=== PATIENT | female | born 1960 | race African-American/Black ===

== ENCOUNTER 2020-02-24 05:05 | Inpatient (IN) | payer SELFPAY ==
[2020-02-24] VITALS (15 sets, daily range): BP systolic 95–136; BP diastolic 65–88
[~2020-02-24] VITALS: Ht 167.6 cm; Wt 78.7 kg
[2020-02-24] MEDS ORDERED: Morphine Sulfate 4mg/ml Inj (IV USE ONLY) IVP ONE ×2 (05:30→06:30)
[2020-02-24] MEDS ORDERED: Omnipaque-300 100ml vial INJ PRN (05:30)
--- NOTE | 2020-02-24 05:30 | NUR ---
ED Nurse Note: Recieved pt from home, here with c/o severe 10/10 abdominal pain in right upper and lower side, pain started in am and worsened through the day, pt was awakened with severe pain, pt is awake, alert and oriented x 4, ambulating, no chest pain or sob, pt immediately gowned and placed on cardiac monitoring, IV line placed and labs drawn, MD immediately at bedside, will resume care as ordered and closely monitor.
--- NOTE | 2020-02-24 05:37 | Emergency Room Report ---
History of Present Illness General Chief Complaint: Abdominal Pain Source: Patient (Arnoldo Villegas MD) Present Illness HPI 60-year-old female presents to ED complaining of abdominal pain. Started at 3 PM yesterday. Lower abdomen radiating to the back. 10 out of 10, sharp. Notes nausea and vomiting. Denies fevers or chills. Denies chest pain. Denies diarrhea. Denies sick contacts or recent travel. No other aggravating relieving factors. 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 (Arnoldo Villegas MD) Patient History Past Medical History: none Past Surgical History: none Pertinent Family History: none Social History: Denies: smoking, alcohol use, drug use Last Menstrual Period: na Now: No Immunizations: UTD Reviewed Nursing Documentation: PMH: Agreed; PSxH: Agreed (Arnoldo Villegas MD) Nursing Documentation-PMH Past Medical History: No Stated History (Arnoldo Villegas MD) Review of Systems All Other Systems: negative except mentioned in HPI (Arnoldo Villegas MD) Physical Exam Vital Signs Date Time Temp Pulse Resp B/P (MAP) Pulse Ox O2 Delivery O2 Flow Rate FiO2 02/24/20 05:09 98.2 104 24 143/96 (112) 95 Room Air Sp02 EP Interpretation: reviewed, normal General Appearance: alert, GCS 15, non-toxic, mild distress Head: normocephalic, atraumatic Eyes: bilateral eye normal inspection, bilateral eye PERRL ENT: hearing grossly normal, normal pharynx, no angioedema, normal voice Neck: full range of motion, supple/symm/no masses Respiratory: chest non-tender, lungs clear, normal breath sounds, speaking full sentences Cardiovascular #1: regular rate, rhythm, no edema Cardiovascular #2: 2+ carotid (R), 2+ carotid (L), 2+ radial (R), 2+ radial (L) , 2+ dorsalis pedis (R), 2+ dorsalis pedis (L) Gastrointestinal: normal bowel sounds, soft, non-distended, no rebound, guarding, tenderness - RLQ Rectal: deferred Genitourinary: normal inspection, no CVA tenderness Musculoskeletal: back normal, normal range of motion, gait/station normal, non- tender Neurologic: alert, motor strength/tone normal, oriented x3, sensory intact, responsive, speech normal Psychiatric: judgement/insight normal, memory normal, mood/affect normal, no suicidal/homicidal ideation Reflexes: 3+ bicep (R), 3+ bicep (L), 3+ tricep (R), 3+ tricep (L), 3+ knee (R) , 3+ knee (L) Skin: no rash Lymphatic: no adenopathy (Arnoldo Villegas MD) Medical Decision Making Diagnostic Impression: Primary Impression: Appendicitis Qualified Codes: K35.30 - Acute appendicitis with localized peritonitis, without perforation or gangrene ER Course 60-year-old female presents with right lower quadrant pain concerning for appendicitis, CT scan shows appendicitis. Patient given ceftriaxone, metronidazole. Patient pain was controlled with hydromorphone. Patient admitted to Dr. Kim, patient will be going to the operating room under Dr. Boone (Leon Hutchison MD) Last Vital Signs Date Time Temp Pulse Resp B/P (MAP) Pulse Ox O2 Delivery O2 Flow Rate FiO2 02/24/20 05:09 98.2 104 24 143/96 (112) 95 Room Air (Arnoldo Villegas MD) Disposition: ADMITTED INPATIENT Condition: Stable Referrals: NOT CHOSEN IPA/,REFERRING (PCP) Arnoldo Villegas MD February 24, 2020 05:37 Leon Hutchison MD February 24, 2020 08:00
[2020-02-24 05:58] LABS: HEMATOCRIT 51.3 % (37.0-47.0); HEMOGLOBIN 17.7 G/DL (12.0-16.0); MEAN CORPUSCULAR VOLUME 80 FL (80-99); PLATELET COUNT 391 K/UL (150-450); RED BLOOD COUNT 6.41 M/UL (4.20-5.40); RED CELL DISTRIBUTION WIDTH 11.6 % (11.6-14.8); WHITE BLOOD COUNT 19.1 K/UL (4.8-10.8)
[2020-02-24 06:05] LABS: ANION GAP 18 mmol/L (5-15); BLOOD UREA NITROGEN 9 mg/dL (7-18); CALCIUM 9.4 MG/DL (8.5-10.1); CARBON DIOXIDE 21 MMOL/L (21-32); CHLORIDE 103 MMOL/L (98-107); CREATININE 1.1 MG/DL (0.55-1.30); POTASSIUM 3.8 MMOL/L (3.5-5.1); SODIUM 141 MMOL/L (136-145)
[2020-02-24 06:10] LABS: ALANINE AMINOTRANSFERASE 47 U/L (12-78); ALBUMIN 3.9 G/DL (3.4-5.0); ALBUMIN/GLOBULIN RATIO 0.9 (1.0-2.7); ALKALINE PHOSPHATASE 65 U/L (46-116); ASPARTATE AMINO TRANSFERASE 21 U/L (15-37)
[2020-02-24] MEDS ORDERED: Morphine Sulfate 4mg/ml Inj (IV USE ONLY) ONE (06:13)
--- NOTE | 2020-02-24 06:15 | NUR ---
ED Nurse Note: Pt continues to rest in bed, awake and alert, pain meds given slightly effective with pain at 7/10, pt asking for morepain meds, pt re-medicated, will monitor for effectiveness, also had pt sign CT consent for for IV contrast, pt denies any allergies or past complications with iodine.
--- NOTE | 2020-02-24 06:56 | NUR ---
ED Nurse Note: pt. went down to CT
--- NOTE | 2020-02-24 07:05 | NUR ---
ED Nurse Note: Received report from Radha MORTENSEN.
[2020-02-24] MEDS ORDERED: HYDROmorphone 1mg/ml Carpuject IVP ONE ×2 (07:15→09:45)
[2020-02-24] MEDS ORDERED: cefTRIAXone 1 GM in NS 55 ML IVPB ONE (07:15)
--- NOTE | 2020-02-24 07:15 | NUR ---
ED Nurse Note: Pt returned from CT, not in any distress.
--- NOTE | 2020-02-24 07:36 | Diagnostic Imaging Report ---
EXAM: CT Abdomen and Pelvis With Intravenous Contrast CLINICAL HISTORY: ABD PAIN TECHNIQUE: Axial computed tomography images of the abdomen and pelvis with intravenous contrast. CTDI is 5.9 mGy and DLP is 312 mGy-cm. One or more of the following dose reduction techniques were used: automated exposure control, adjustment of the mA and/or kV according to patient size, use of iterative reconstruction technique. COMPARISON: No relevant prior studies available. FINDINGS: Lung bases: There is mild bibasilar atelectasis. Mediastinum: There is a small by hiatal hernia. ABDOMEN: Liver: Unremarkable. No mass. Gallbladder and bile ducts: Unremarkable. No calcified stones. No ductal dilation. Pancreas: Unremarkable. No mass. No ductal dilation. Spleen: Unremarkable. No splenomegaly. Adrenals: Unremarkable. No mass. Kidneys and ureters: There are bilateral pelvic renal cysts. There is no hydronephrosis. Stomach and bowel: No bowel obstruction. There is also mild circumferential wall thickening of most of the colon which could be due to underdistention but could represent a mild colitis. PELVIS: Appendix: The appendix is markedly thickened, measuring up to 1.6 cm. There are small hyperdense areas in the lumen, likely small appendicoliths. There are mild to moderate plantar changes in the surrounding fat. Bladder: Unremarkable. No mass. Reproductive: Unremarkable as visualized. ABDOMEN and PELVIS: Intraperitoneal space: Unremarkable. No free air. No significant fluid collection. Bones/joints: No acute fracture. No dislocation. Soft tissues: Unremarkable. Vasculature: Unremarkable. No abdominal aortic aneurysm. Lymph nodes: Unremarkable. No enlarged lymph nodes. IMPRESSION: 1. Acute appendicitis. No evidence of abscess or perforation. 2. Mild circumferential wall thickening of the colon could be due to underdistention but cannot exclude a colitis. <MYCVCSECTION> Communications: 02/24/20 07:44 Call Doctor Regarding Appendicitis, called Dr. Hutchison on 02/23 07:43 (-07:00)
[2020-02-24 07:50] LABS: APPEARANCE,URINE CLEAR; BILIRUBIN, URINE NEGATIVE (NEGATIVE); COLOR,URINE PALE YELLOW; GLUCOSE, URINE (UA) 1+ (NEGATIVE); KETONES,URINE 2+ (NEGATIVE); LEUKOCYTE ESTERASE ,URINE NEGATIVE (NEGATIVE); NITRITE,URINE NEGATIVE (NEGATIVE); PH,URINE 5 (4.5-8.0); PROTEIN,URINE 2+ (NEGATIVE); UROBILINOGEN,URINE NORMAL MG/DL (0.0-1.0)
[2020-02-24] MEDS ORDERED: AMLODIPINE BESY10 MG ORAL (08:46)
--- NOTE | 2020-02-24 08:58 | NUR ---
ED Nurse Note: Dr. Boone at bedside.
--- NOTE | 2020-02-24 09:08 | Pre-Procedure Note/Attestation ---
Pre-Procedure Note/Attestation Complete Prior to Procedure Planned Procedure: not applicable Procedure Narrative: laparoscopic appendectomy possible open appendectomy Indications for Procedure Pre-Operative Diagnosis: acute appendicitis Attestation I attest that I discussed the nature of the procedure; its benefits; risks and complications; and alternatives (and the risks and benefits of such alternatives ), prior to the procedure, with the patient (or the patient's legal marketing representative). I attest that, if there was a reasonable possibility of needing a blood transfusion, the patient (or the patient's legal marketing representative) was given the [facility] standardized written summary, pursuant to the Steven Tejal Blood Safety Act ([place] Health and Safety Code # 1645, as amended). I attest that I re-evaluated the patient just prior to the surgery and that there has been no change in the patient's H&P, except as documented below: Marisol Boone MD February 24, 2020 09:08
--- NOTE | 2020-02-24 09:08 | NUR ---
ED Nurse Note: Dr. Kim at bedside.
[2020-02-24] MEDS ORDERED: Bupivacaine 0.25% Inj 30ml INJ ONE (10:21)
[2020-02-24] MEDS ORDERED: Succinylcholine 20mg/ml 10ml vial ONE (10:21)
[2020-02-24] MEDS ORDERED: Rocuronium Bromide 50mg/5ml Inj IV ONE (10:21)
[2020-02-24] MEDS ORDERED: Bacitracin 50000 Units Vial ONE (10:22)
--- NOTE | 2020-02-24 10:22 | NUR ---
ED Nurse Note: Pt was picked up by OR tech for surgery via gurney. Pt AAOx4, verbally responsive. Pre op assesment done. Consent obtained. Pt took all the belongings.
[2020-02-24] MEDS ORDERED: Sterile Water Irrig 1000ml IRRIG ONE (10:30)
[2020-02-24] MEDS ORDERED: LR 1000ml ONE (10:30)
[2020-02-24] MEDS ORDERED: NS Irrig 1000ml ONE (10:30)
[2020-02-24] MEDS ORDERED: propofoL 1,000mg/100ml IV ONE (10:30)
[2020-02-24] MEDS ORDERED: Neostigmine 1mg/ml 10ml Inj ONE (10:30)
[2020-02-24] MEDS ORDERED: LR 1000ml 1,000 ML IVLG SCH (10:31)
--- NOTE | 2020-02-24 10:33 | Anethesia Preoperative Eval ---
Anesthesia Pre-op PMH/ROS General Date of Evaluation: February 24, 2020 Time of Evaluation: 01:36 Anesthesiologist: Radhika ASA Score: ASA 2 - Emergency Mallampati Score Class I : Soft palate, uvula, fauces, pillars visible Class II: Soft palate, uvula, fauces visible Class III: Soft palate, base of uvula visible Class IV: Only hard plate visible Mallampati Classification: Class II Surgeon: Paolo Diagnosis: Acute Appendicitis Surgical Procedure: Laparoscopic Appendectomy Anesthesia History: none Social History: current smoker Family History: no anesthesia problems Allergies: Coded Allergies: No Known Allergies (Unverified , 02/24/20) Medications: see eMAR Patient NPO?: Yes Past Medical History Hematology/Immune: Reports: other - Covid Status Unknown Anesthesia Pre-op Phys. Exam Physician Exam Last Vital Signs Date Time Temp Pulse Resp B/P (MAP) Pulse Ox O2 Delivery O2 Flow Rate FiO2 02/24/20 10:22 98.3 90 21 125/69 98 Room Air Constitutional: NAD Neurologic: CN 2-12 intact Cardiovascular: RRR Respiratory: CTA Gastrointestinal: S/NT/ND Airway Exam Mallampati Score: Class II MO: full ROM: limited Teeth: intact Anesthesia Pre-op A/P Labs Hematology Test 02/24/20 05:25 White Blood Count 19.1 K/UL (4.8-10.8) H Red Blood Count 6.41 M/UL (4.20-5.40) H Hemoglobin 17.7 G/DL (12.0-16.0) H Hematocrit 51.3 % (37.0-47.0) H Mean Corpuscular Volume 80 FL (80-99) Mean Corpuscular Hemoglobin 27.6 PG (27.0-31.0) Mean Corpuscular Hemoglobin Concent 34.5 G/DL (32.0-36.0) Red Cell Distribution Width 11.6 % (11.6-14.8) Platelet Count 391 K/UL (150-450) Mean Platelet Volume 5.6 FL (6.5-10.1) L Neutrophils (%) (Auto) % (45.0-75.0) Lymphocytes (%) (Auto) % (20.0-45.0) Monocytes (%) (Auto) % (1.0-10.0) Eosinophils (%) (Auto) % (0.0-3.0) Basophils (%) (Auto) % (0.0-2.0) Differential Total Cells Counted 100 Neutrophils % (Manual) 89 % (45-75) H Lymphocytes % (Manual) 6 % (20-45) L Monocytes % (Manual) 5 % (1-10) Eosinophils % (Manual) 0 % (0-3) Basophils % (Manual) 0 % (0-2) Band Neutrophils 0 % (0-8) Platelet Estimate Adequate Platelet Morphology Normal Red Blood Cell Morphology Normal Coagulation Test 02/24/20 05:25 Prothrombin Time 10.9 SEC (9.30-11.50) Prothromb Time International Ratio 1.0 (0.9-1.1) Activated Partial Thromboplast Time 27 SEC (23-33) Chemistry Test 02/24/20 05:25 Sodium Level 141 MMOL/L (136-145) Potassium Level 3.8 MMOL/L (3.5-5.1) Chloride Level 103 MMOL/L (98-107) Carbon Dioxide Level 21 MMOL/L (21-32) Anion Gap 18 mmol/L (5-15) H Blood Urea Nitrogen 9 mg/dL (7-18) Creatinine 1.1 MG/DL (0.55-1.30) Estimat Glomerular Filtration Rate > 60 mL/min (>60) Glucose Level 166 MG/DL (74-106) H Calcium Level 9.4 MG/DL (8.5-10.1) Total Bilirubin 1.0 MG/DL (0.2-1.0) Aspartate Amino Transf (AST/SGOT) 21 U/L (15-37) Alanine Aminotransferase (ALT/SGPT) 47 U/L (12-78) Alkaline Phosphatase 65 U/L (46-116) Total Protein 8.3 G/DL (6.4-8.2) H Albumin 3.9 G/DL (3.4-5.0) Globulin 4.4 g/dL Albumin/Globulin Ratio 0.9 (1.0-2.7) L Lipase 85 U/L (73-393) Risk Assessment & Plan Assessment: ASA 2E Plan: GA, SED, GlideScope Status Change Before Surgery: No Pre-Antibiotics Dru Gram Ancef IV Given Within 1 Hr of Incision: Yes Time Given: 11:41 Devan Garrido MD February 24, 2020 10:33
[2020-02-24] MEDS ORDERED: Lidocaine 1% MPF 10mg/ml 5ml ONE (10:37)
[2020-02-24] MEDS ORDERED: Dexamethasone 4mg/ml vial ONE (10:37)
[2020-02-24] MEDS ORDERED: Sodium Chloride 10ml vial INJ ONE (10:37)
[2020-02-24] MEDS ORDERED: Midazolam 2mg/2ml Inj ONE (10:38)
[2020-02-24] MEDS ORDERED: fentaNYL 100 mcg/2 mL IV ONE ×2 (10:38→12:36)
[2020-02-24] MEDS ORDERED: Hydromorphone 0.5mg/0.5ml inj IVP PRN (10:45)
[2020-02-24] MEDS ORDERED: LORazepam Inj 2mg/ml 1ml IV PRN (10:45)
[2020-02-24] MEDS ORDERED: Ketorolac 30mg Inj IV PRN (10:45)
[2020-02-24] MEDS ORDERED: DiphenhydrAMINE 50mg/ml Inj IVP PRN (10:45)
[2020-02-24] MEDS ORDERED: Midazolam 2mg/2ml Inj IVP PRN (10:45)
[2020-02-24] MEDS ORDERED: HYDROcodone/Acetamin 7.5/325 tab ORAL PRN (10:45)
[2020-02-24] MEDS ORDERED: Labetalol 5mg/ml 20ml vial IV PRN (10:45)
[2020-02-24] MEDS ORDERED: Acetaminophen (Non formulary) 100 ML IV ONE (10:45)
[2020-02-24] MEDS ORDERED: Metoclopramide 10mg/2ml Inj IVP PRN (10:45)
[2020-02-24] MEDS ORDERED: HYDROcodone/Acetamin 5/325 tab ORAL PRN (10:45)
[2020-02-24] MEDS ORDERED: Meperidine 25mg/0.5ml Inj (FOR RIGORS ONLY) IV PRN (10:45)
[2020-02-24] MEDS ORDERED: oxyCODONE HCL/Acetaminophen 5/325mg ORAL PRN (10:45)
[2020-02-24] MEDS ORDERED: fentaNYL 100 mcg/2 mL IV PRN (10:45)
[2020-02-24] MEDS ORDERED: Atropine Sulfate 0.4mg/ml inj IVP PRN (10:45)
--- NOTE | 2020-02-24 11:27 | Immediate Post-Op Evaluation ---
Immediate Post-Op Evalulation Immediate Post-Op Evalulation Procedure: Laparoscopic Appendectomy Date of Evaluation: February 24, 2020 Time of Evaluation: 14:15 IV Fluids: 1000 LR Blood Products: 0 Estimated Blood Loss: 50 Urinary Output: 0 Blood Pressure Systolic: 125 Blood Pressure Diastolic: 78 Pulse Rate: 94 Respiratory Rate: 16 O2 Sat by Pulse Oximetry: 94 Temperature (Fahrenheit): 98.4 Pain Score (1-10): 2 Nausea: No Vomiting: No Complications 0 Patient Status: awake, reacts, patent, extubated, none Hydration Status: adequate Dru Gram Ancef IV Given Within 1 Hr of Incision: Yes Time Given: 11:41 Devan Garrido MD February 24, 2020 11:27
--- NOTE | 2020-02-24 12:15 | Consultation ---
DATE OF CONSULTATION: 02/24/2020 PREOPERATIVE CONSULTATION CONSULTING PHYSICIAN: Marisol Boone MD. REQUESTING PHYSICIAN: Emergency room physician. REASON FOR CONSULTATION: Abdominal pain. HISTORY OF PRESENT ILLNESS: This is a 60-year-old female, who presented to emergency room complaining of abdominal pain since early this morning or last night. The pain is located in the lower abdomen mainly on the right lower quadrant. It has been associated with nausea and vomiting. She denies any fever, cough, dysuria, or frequency. She claims that she has had this pain before, but not so severe. PAST MEDICAL HISTORY: She denies allergies, asthma, diabetes, cardiac and renal diseases. She has a history of hypertension. PAST SURGICAL HISTORY: None. MEDICATIONS: Currently, she takes medicine for hypertension and hormones. SOCIAL HISTORY: The patient is a 60-year-old female, single without any children. 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 REVIEW OF SYSTEMS: Noncontributory. PHYSICAL EXAMINATION: GENERAL: The patient appeared to be a well-developed, well-nourished, 60-year-old female, who is lying on the bed, complaining of abdominal pain. HEENT: Head is normocephalic and atraumatic. Eyes, pupils are equal, round, and reactive to light. Mouth is clear. NECK: There is no palpable thyromegaly or adenopathy. CHEST: Clear to auscultation and percussion. HEART: There is no gallop or murmur. S1 and S2 are within normal limits. ABDOMEN: Soft and flat with tenderness. Voluntary guarding and mild rebound tenderness in the lower abdomen, which is more pronounced at the right lower quadrant. Bowel sounds are present. GENITAL: She is free of hernia. EXTREMITIES: Within normal limits. LABORATORY DATA: CBC has shown a WBC of 19,100 with a left shift. Chemistry and UA are normal. CAT scan of the abdomen has been interpreted as acute appendicitis. ASSESSMENT: Acute appendicitis. PLAN: After rehydration, the patient will undergo a laparoscopy appendectomy, possible open appendectomy. Risks and benefits have been explained to her. She understood and granted consent. Marisol Boone M.D. DR: DIAN JOB#: [id number] CC: SHEY
[2020-02-24] MEDS ORDERED: Glycopyrrolate 0.2mg/ml 1ml Vial ONE (12:18)
[2020-02-24] MEDS ORDERED: NS Irrig 1000ml IRRIG ONE (12:30)
[2020-02-24] MEDS ORDERED: Lidocaine 1% Plain 30 ml INJ ONE (12:37)
--- NOTE | 2020-02-24 13:20 | Brief Operative Note ---
Immediate Post Operative Note Operative Note Pre-op Diagnosis: acute appendicitis Procedure: Laparoscopic appendectomy drainage of abscess, open exploration and repair of cecum Post-op Diagnosis: appendicitis with abscess Post-op Diagnosis: same as pre-op Surgeon: Md Alia Family Literacy Coordinator: none Anesthesiologist: Dr. Garrido Anesthesia: general Specimen: yes Complications: none Condition: stable Fluids: per anesthesia Estimated Blood Loss: volume - 20 ml Drains: other - kishor Implant(s) used?: No Marisol Boone MD February 24, 2020 13:20
[2020-02-24] MEDS ORDERED: Acetaminophen 650 MG SUPP RECTAL PRN (13:30)
--- NOTE | 2020-02-24 14:06 | History & Physical ---
History and Physical History & Physicial HISTORY OF PRESENT ILLNESS: 60-year-old female, who presented to emergency room complaining of abdominal pain right lower quadrant. + nausea and vomiting. She denies any fever, cough, dysuria, or frequency. CT confirmed appendicitis PAST MEDICAL HISTORY: hypertension. PAST SURGICAL HISTORY: None. 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 REVIEW OF SYSTEMS: Noncontributory. PHYSICAL EXAMINATION: WDWN NAD clear breath sounds bilaterally without rhonchi or wheeze [id number] without MRG NABS tender abdomen RLQ no CCE nonfocal LABORATORY DATA: Laboratory Tests Test 02/24/20 05:25 02/24/20 07:30 White Blood Count 19.1 K/UL (4.8-10.8) H Red Blood Count 6.41 M/UL (4.20-5.40) H Hemoglobin 17.7 G/DL (12.0-16.0) H Hematocrit 51.3 % (37.0-47.0) H Mean Corpuscular Volume 80 FL (80-99) Mean Corpuscular Hemoglobin 27.6 PG (27.0-31.0) Mean Corpuscular Hemoglobin Concent 34.5 G/DL (32.0-36.0) Red Cell Distribution Width 11.6 % (11.6-14.8) Platelet Count 391 K/UL (150-450) Mean Platelet Volume 5.6 FL (6.5-10.1) L Neutrophils (%) (Auto) % (45.0-75.0) Lymphocytes (%) (Auto) % (20.0-45.0) Monocytes (%) (Auto) % (1.0-10.0) Eosinophils (%) (Auto) % (0.0-3.0) Basophils (%) (Auto) % (0.0-2.0) Differential Total Cells Counted 100 Neutrophils % (Manual) 89 % (45-75) H Lymphocytes % (Manual) 6 % (20-45) L Monocytes % (Manual) 5 % (1-10) Eosinophils % (Manual) 0 % (0-3) Basophils % (Manual) 0 % (0-2) Band Neutrophils 0 % (0-8) Platelet Estimate Adequate Platelet Morphology Normal Red Blood Cell Morphology Normal Prothrombin Time 10.9 SEC (9.30-11.50) Prothromb Time International Ratio 1.0 (0.9-1.1) Activated Partial Thromboplast Time 27 SEC (23-33) Sodium Level 141 MMOL/L (136-145) Potassium Level 3.8 MMOL/L (3.5-5.1) Chloride Level 103 MMOL/L (98-107) Carbon Dioxide Level 21 MMOL/L (21-32) Anion Gap 18 mmol/L (5-15) H Blood Urea Nitrogen 9 mg/dL (7-18) Creatinine 1.1 MG/DL (0.55-1.30) Estimat Glomerular Filtration Rate > 60 mL/min (>60) Glucose Level 166 MG/DL (74-106) H Calcium Level 9.4 MG/DL (8.5-10.1) Total Bilirubin 1.0 MG/DL (0.2-1.0) Aspartate Amino Transf (AST/SGOT) 21 U/L (15-37) Alanine Aminotransferase (ALT/SGPT) 47 U/L (12-78) Alkaline Phosphatase 65 U/L (46-116) Total Protein 8.3 G/DL (6.4-8.2) H Albumin 3.9 G/DL (3.4-5.0) Globulin 4.4 g/dL Albumin/Globulin Ratio 0.9 (1.0-2.7) L Lipase 85 U/L (73-393) Urine Color Pale yellow Urine Appearance Clear Urine pH 5 (4.5-8.0) Urine Specific [place] 1.015 (1.005-1.035) Urine Protein 2+ (NEGATIVE) H Urine Glucose (UA) 1+ (NEGATIVE) H Urine Ketones 2+ (NEGATIVE) H Urine Blood Negative (NEGATIVE) Urine Nitrite Negative (NEGATIVE) Urine Bilirubin Negative (NEGATIVE) Urine Urobilinogen Normal MG/DL (0.0-1.0) Urine Leukocyte Esterase Negative (NEGATIVE) Urine RBC 0 /HPF (0 - 2) Urine WBC 0-2 /HPF (0 - 2) Urine Squamous Epithelial Cells Few /LPF (NONE/OCC) Urine Bacteria Occasional /HPF (NONE) Urine Mucus Few /LPF (NONE/OCC) H ASSESSMENT: Acute appendicitis. leukocytosis, due to the above proteinuria hypertension PLAN appy planned NPO IV fluids antihypoertensive surgery appreciated impression, plan, and exam edited and reviewed in detail care discussed with Toni Márquez MD February 24, 2020 14:06
--- NOTE | 2020-02-24 14:07 | General Progress Note ---
Subjective Allergies: Coded Allergies: No Known Allergies (Unverified , 02/24/20) Objective Last 24 Hour Vital Signs Date Time Temp Pulse Resp B/P (MAP) Pulse Ox O2 Delivery O2 Flow Rate FiO2 02/24/20 10:22 98.3 90 21 125/69 98 Room Air 02/24/20 10:22 98.3 90 21 125/69 98 Room Air 02/24/20 10:18 98.3 02/24/20 09:00 98.3 92 25 121/66 96 Room Air 02/24/20 07:54 98.3 02/24/20 07:05 98.3 89 21 128/88 97 Room Air 02/24/20 06:35 98.3 74 18 136/88 98 Room Air 02/24/20 06:24 98.3 02/24/20 06:24 98.3 02/24/20 05:25 104 24 Room Air 02/24/20 05:09 98.2 104 24 143/96 (112) 95 Room Air Laboratory Tests 02/24/20 05:25: White Blood Count 19.1H, Red Blood Count 6.41H, Hemoglobin 17.7H, Hematocrit 51.3H, Mean Corpuscular Volume 80, Mean Corpuscular Hemoglobin 27.6, Mean Corpuscular Hemoglobin Concent 34.5, Red Cell Distribution Width 11.6, Platelet Count 391, Mean Platelet Volume 5.6L, Neutrophils (%) (Auto) , Lymphocytes (%) ( Auto) , Monocytes (%) (Auto) , Eosinophils (%) (Auto) , Basophils (%) (Auto) , Differential Total Cells Counted 100, Neutrophils % (Manual) 89H, Lymphocytes % (Manual) 6L, Monocytes % (Manual) 5, Eosinophils % (Manual) 0, Basophils % ( Manual) 0, Band Neutrophils 0, Platelet Estimate Adequate, Platelet Morphology Normal, Red Blood Cell Morphology Normal, Prothrombin Time 10.9, Prothromb Time International Ratio 1.0, Activated Partial Thromboplast Time 27, Sodium Level 141, Potassium Level 3.8, Chloride Level 103, Carbon Dioxide Level 21, Anion Gap 18H, Blood Urea Nitrogen 9, Creatinine 1.1, Estimat Glomerular Filtration Rate > 60, Glucose Level 166H, Calcium Level 9.4, Total Bilirubin 1.0, Aspartate Amino Transf (AST/SGOT) 21, Alanine Aminotransferase (ALT/SGPT) 47, Alkaline Phosphatase 65, Total Protein 8.3H, Albumin 3.9, Globulin 4.4, Albumin/ Globulin Ratio 0.9L, Lipase 85 02/24/20 07:30: Urine Color Pale yellow, Urine Appearance Clear, Urine pH 5, Urine Specific [place] 1.015, Urine Protein 2+H, Urine Glucose (UA) 1+H, Urine Ketones 2+H, Urine Blood Negative, Urine Nitrite Negative, Urine Bilirubin Negative, Urine Urobilinogen Normal, Urine Leukocyte Esterase Negative, Urine RBC 0, Urine WBC 0 -2, Urine Squamous Epithelial Cells Few, Urine Bacteria Occasional, Urine Mucus FewH Height (Feet): 5 Height (Inches): 6.00 Weight (Pounds): 77 Toni Kim MD February 24, 2020 14:07
[2020-02-24] MEDS: Ketorolac 30mg Inj IV PRN ×2 (14:33→15:41)
[2020-02-24] MEDS: D5 1/2NS w/KCl 20mEq 1,000 ML IV SCH (16:31)
--- NOTE | 2020-02-24 18:29 | Operative Note - Dictated ---
DATE OF OPERATION: 02/24/2020 PREOPERATIVE DIAGNOSIS: Acute appendicitis. POSTOPERATIVE DIAGNOSIS: Acute appendicitis with abscess. OPERATION: 1. Laparoscopic appendectomy with drainage of abscess. 2. Open exploration of the right lower quadrant with repair of the cecum. COMPLICATIONS: None. SURGEON: Marisol Boone MD. RADIO MECHANIC: None. ANESTHESIA: General with endotracheal tube. ANESTHESIOLOGIST: Devan Garrido MD. INDICATION: This is a 60-year-old female, who presented to emergency room with abdominal pain since last night. The pain was located at the right lower quadrant and associated with nausea and vomiting. Apparently she had a normal bowel movement yesterday. Physical examination showed severe tenderness and rebound tenderness at the lower abdomen, which was more severe on the right lower quadrant. CBC showed a WBC of 19,000 with a left shift. CAT scan of the abdomen was interpreted as acute appendicitis. DESCRIPTION OF PROCEDURE: The patient was placed supine on the operating table and after general anesthesia with endotracheal tube, the abdomen was properly prepped and draped. Initially, a small incision was given above the umbilicus through which a Veress needle was introduced into the intraperitoneal cavity. This cavity was insufflated up to 15 mmHg and then the Veress needle was removed and a 5 mm trocar was placed in the intraperitoneal cavity through the incision above the umbilicus. The laparoscope and camera were introduced into the intraperitoneal cavity through the trocar above the umbilicus. Under direct vision, a 5 mm trocar was placed at the suprapubic area and a 12 mm trocar was placed at the left lower quadrant of the abdomen. Initially, a rapid exploration was performed, which showed the diaphragms to be normal. The part of the stomach, which could be seen was normal. The liver and gallbladder was normal. The bowels were covered with omentum. At the right lower quadrant, there was extensive inflammatory signs and there was some chávez-brownish fluid on the right paracolic gutter. The fluid was aspirated. The pus was aspirated and then exploration of the right lower quadrant cavity was performed. There were extensive adhesions, which were released. Finally the appendix was identified. During the dissection, an abscess was drained, which was suctioned out. This abscess seems to be lateral to the appendix under the cecum and from the appendix. The appendix and mesoappendix was completely exposed. The appendix was distended and inflamed, but I did not see any perforation. The appendix and the mesoappendix was ligated and transected with the help of the ASMY stapler. At the next step, the exploration of the area was performed and there was an area on the cecum, which was most probably the abscess cavity and was draining. After the pus was completely removed, I was not sure if there was any perforation in the cecum. Exploration clearly showed that there was no perforation. I tried to resect this part of the cecum with the help of the SAMY stapler, but it was very thick and our SAMY stapler could not accommodate. Several attempts were performed to make sure about the nature of this area, but I could not make sure that there was no perforation in the cecum, so the decision was made to explore the right lower quadrant cavity and explore it under direct vision. The trocars were removed. An oblique incision was given at the right lower quadrant and was carried sharply through subcutaneous tissue and the fascia. The muscle was split. The peritoneum was incised. Intraperitoneal cavity was entered. The cecum was identified and was released and was delivered in the wound. Exploration was performed. Again, the area was very suspicious. I was unable to see any huan perforation, but the wall was inflamed and it was very clean. After multiple attempts to explore the area, finally I applied the SAMY stapler on the area and the suspicious area was ligated and resected. The area was oversewn with a running suture of [address], I was sure that if there was any perforation, it has been taken care of. After this, the intraperitoneal cavity was thoroughly irrigated with antibiotic solution. Kuldeep drain was placed in the pelvis and was extended in the right paracolic gutter and was brought out from a separate stab wound. The incision was approximated with running suture of 0 Vicryl for posterior fascia and peritoneum. The muscles were approximated with multiple interrupted sutures with 0 Vicryl and then the aponeurosis of the external oblique was repaired with a running suture of 0 Vicryl. The skin incisions were approximated with multiple skin kailey. The patient tolerated the procedure very well and was transferred to recovery room in stable condition and extubated. COUNTS: The sponge and needle count correct. ESTIMATED BLOOD LOSS: 20 mL. CONDITION OF THE PATIENT AT THE END OF THE PROCEDURE: Stable. Marisol Boone M.D. DR: GILES JOB#: [id number] CC:
--- NOTE | 2020-02-24 19:11 | NUR ---
HAND-OFF: Report given to Neo MORTENSEN pt in stable condition. - pt able to ambulate to the bathroom with staff assistance. - pt was able to void. I&O's RENUKA: 160ml intake: NPO x ice chips and meds.
--- NOTE | 2020-02-24 19:15 | NUR ---
NURSE NOTES: Report received from FESTUS Stewart. Patient is seen lying in bed, semi fowlers position. Not in acute distress. Patient denies any pain as of the moment. Patient denies any difficulty voiding, and ambulates with steady gait. Will continue to monitor.
[2020-02-24] MEDS: HYDROmorphone 1mg/ml Carpuject IVP PRN (21:45)
[2020-02-24] MEDS: Metoclopramide 10mg/2ml Inj IVP SCH (21:45)
[2020-02-24] MEDS: Piperacillin/Tazobactam 3.375 GM in NS 110 ML IVPB SCH (21:45)
[2020-02-24] MEDS ORDERED: Gentamicin inj 400 MG in NS 110 ML IVPB SCH (23:00)
[2020-02-25] VITALS: BP 108/71
[2020-02-25] MEDS: D5 1/2NS w/KCl 20mEq 1,000 ML IV SCH ×3 (03:22→23:00)
[2020-02-25 04:00] VITALS: BP 110/69
[2020-02-25] MEDS: HYDROmorphone 1mg/ml Carpuject IVP PRN ×4 (05:02→21:21)
[2020-02-25] MEDS: Metoclopramide 10mg/2ml Inj IVP SCH ×3 (05:02→21:22)
[2020-02-25] MEDS: Piperacillin/Tazobactam 3.375 GM in NS 110 ML IVPB SCH ×3 (05:03→21:22)
[2020-02-25 07:09] LABS: HEMATOCRIT 38.5 % (37.0-47.0); HEMOGLOBIN 13.4 G/DL (12.0-16.0); MEAN CORPUSCULAR VOLUME 80 FL (80-99); PLATELET COUNT 284 K/UL (150-450); RED BLOOD COUNT 4.79 M/UL (4.20-5.40); RED CELL DISTRIBUTION WIDTH 11.8 % (11.6-14.8); WHITE BLOOD COUNT 16.6 K/UL (4.8-10.8)
[2020-02-25 07:27] LABS: ANION GAP 12 mmol/L (5-15); BLOOD UREA NITROGEN 10 mg/dL (7-18); CALCIUM 7.7 MG/DL (8.5-10.1); CARBON DIOXIDE 20 MMOL/L (21-32); CHLORIDE 109 MMOL/L (98-107); CREATININE 1.1 MG/DL (0.55-1.30); POTASSIUM 3.9 MMOL/L (3.5-5.1); SODIUM 141 MMOL/L (136-145)
--- NOTE | 2020-02-25 07:32 | NUR ---
HAND-OFF: Report given to FESTUS Moreno. Patient in stable condition.
--- NOTE | 2020-02-25 07:40 | NUR ---
NURSE NOTES: Handoff received from Neo MORTENSEN. Patient is awake and alert, no signs of distress noted, no complaints of pain or nausea. Breathing is unlabored and even on 3L nasal cannula. Right AC IV is patent and asymptomatic and running IVF as ordered. Bed is low and locked, side rails up x2, call light is within reach.
[2020-02-25 08:00] VITALS: BP 109/62
[2020-02-25] MEDS: Pantoprazole Inj IVP SCH (08:32)
--- NOTE | 2020-02-25 10:27 | General Progress Note ---
Assessment/Plan Assessment/Plan: ASSESSMENT: Acute appendicitis. leukocytosis, due to the above proteinuria hypertension PLAN appy completed NPO and advance per GS IV fluids antihypertensive surgery appreciated and await clearance impression, plan, and exam edited and reviewed in detail care discussed with RN Subjective Allergies: Coded Allergies: No Known Allergies (Unverified , 02/24/20) Subjective stable postop Objective Last 24 Hour Vital Signs Date Time Temp Pulse Resp B/P (MAP) Pulse Ox O2 Delivery O2 Flow Rate FiO2 02/25/20 08:00 98.5 72 18 109/62 (78) 93 02/25/20 05:32 98.5 02/25/20 04:00 98.5 89 18 110/69 (83) 94 02/25/20 00:00 98.5 89 18 108/71 (83) 94 02/24/20 21:00 Room Air 02/24/20 20:00 98.7 80 17 107/69 (82) 92 02/24/20 16:29 98.9 74 18 116/75 (89) 95 79 02/24/20 16:00 99.0 79 20 97/65 (76) 93 79 02/24/20 15:42 Nasal Cannula 3.0 02/24/20 15:30 99.0 76 20 97/67 (77) 93 76 02/24/20 15:03 99.0 02/24/20 14:55 97.8 82 21 104/73 95 Nasal Cannula 3 02/24/20 14:45 83 20 95/71 94 Nasal Cannula 3 02/24/20 14:30 80 17 99/68 95 Nasal Cannula 3 02/24/20 14:20 82 21 101/70 94 Nasal Cannula 3 02/24/20 14:15 88 18 115/74 95 Simple Mask 3 02/24/20 14:05 98 20 109/70 90 Simple Mask 8 02/24/20 14:04 94 16 94 02/24/20 14:00 98.4 94 16 125/71 92 Simple Mask 8 Intake and Output 02/24/20 02/25/20 19:00 07:00 Intake Total 1130 ml Output Total 400 ml 30 ml Balance 730 ml -30 ml Intake IV Total 1130 ml Output Urine Total 100 ml Drainage Total 300 ml 30 ml # Voids 2 3 Laboratory Tests 02/25/20 05:10: White Blood Count 16.6H, Red Blood Count 4.79, Hemoglobin 13.4, Hematocrit 38.5 , Mean Corpuscular Volume 80, Mean Corpuscular Hemoglobin 28.0, Mean Corpuscular Hemoglobin Concent 34.8, Red Cell Distribution Width 11.8, Platelet Count 284, Mean Platelet Volume 6.0L, Neutrophils (%) (Auto) , Lymphocytes (%) ( Auto) , Monocytes (%) (Auto) , Eosinophils (%) (Auto) , Basophils (%) (Auto) , Differential Total Cells Counted 100, Neutrophils % (Manual) 88H, Lymphocytes % (Manual) 6L, Monocytes % (Manual) 6, Eosinophils % (Manual) 0, Basophils % ( Manual) 0, Band Neutrophils 0, Platelet Estimate Adequate, Platelet Morphology Normal, Anisocytosis 1+, Sodium Level 141, Potassium Level 3.9, Chloride Level 109H, Carbon Dioxide Level 20L, Anion Gap 12, Blood Urea Nitrogen 10, Creatinine 1.1, Estimat Glomerular Filtration Rate > 60, Glucose Level 118H, Calcium Level 7.7L Height (Feet): 5 Height (Inches): 6.00 Weight (Pounds): 175 Objective WDWN NAD clear breath sounds bilaterally without rhonchi or wheeze [id number] without MRG NABS nontender no HSM no CCE nonfocal Toni Kim MD February 25, 2020 10:27
--- NOTE | 2020-02-25 10:52 | NUR ---
CASE MANAGEMENT: REVIEW 60 YEAR OLD FEMALE CC: ABD PAIN . LOWER BACK PAIN 07/19 . VOMITING SI: ACUTE APPENDICITIS LAPAROSCOPIC APPENDECTOMY 02/23 T 98.2 HR 104 RR 24 BP 143/96 SAT 95% ROOM AIR WBC 19.1 GLUCOSE 166 IS: FLAGYL IV X1 CEFTRIAXONE IV X1 DILAUDID IV X1 ZOFRAN IV X1 MORPHINE IV X1 FENTANYL IV X1 NS IVF BOLUS X1 PATIENT ADMITTED TO MED/SURG UNIT DCP: PATIENT IS FROM HOME
--- NOTE | 2020-02-25 10:54 | 48 Hour Post Anesthesia Eval ---
Post Anesthesia Evaluation Procedure: Laparoscopic Appendectomy Date of Evaluation: February 25, 2020 Time of Evaluation: 10:53 Blood Pressure Systolic: 108 0: 74 Pulse Rate: 68 Respiratory Rate: 20 Temperature (Fahrenheit): 97.6 O2 Sat by Pulse Oximetry: 98 Airway: patent Nausea: No Vomiting: No Pain Intensity: 3 Hydration Status: adequate Cardiopulmonary Status: stable Mental Status/LOC: patient returned to baseline Follow-up Care/Observations: n/a Post-Anesthesia Complications: none Follow-up care needed: N/A Jose Velasquez MD February 25, 2020 10:54
--- NOTE | 2020-02-25 11:07 | General Surgery Progress Note ---
General Surgery-Progress Note Subjective Procedure Performed Laparoscopic appendectomy drainage of abscess, open exploration and repair of cecum Symptoms: improved Objective Last 24 Hour Vital Signs Date Time Temp Pulse Resp B/P (MAP) Pulse Ox O2 Delivery O2 Flow Rate FiO2 02/25/20 10:54 68 20 98 02/25/20 08:00 98.5 72 18 109/62 (78) 93 02/25/20 05:32 98.5 02/25/20 04:00 98.5 89 18 110/69 (83) 94 02/25/20 00:00 98.5 89 18 108/71 (83) 94 02/24/20 21:00 Room Air 02/24/20 20:00 98.7 80 17 107/69 (82) 92 02/24/20 16:29 98.9 74 18 116/75 (89) 95 79 02/24/20 16:00 99.0 79 20 97/65 (76) 93 79 02/24/20 15:42 Nasal Cannula 3.0 02/24/20 15:30 99.0 76 20 97/67 (77) 93 76 02/24/20 15:03 99.0 02/24/20 14:55 97.8 82 21 104/73 95 Nasal Cannula 3 02/24/20 14:45 83 20 95/71 94 Nasal Cannula 3 02/24/20 14:30 80 17 99/68 95 Nasal Cannula 3 02/24/20 14:20 82 21 101/70 94 Nasal Cannula 3 02/24/20 14:15 88 18 115/74 95 Simple Mask 3 02/24/20 14:05 98 20 109/70 90 Simple Mask 8 02/24/20 14:04 94 16 94 02/24/20 14:00 98.4 94 16 125/71 92 Simple Mask 8 I&O Intake and Output 02/24/20 02/25/20 19:00 07:00 Intake Total 1130 ml Output Total 400 ml 30 ml Balance 730 ml -30 ml Intake IV Total 1130 ml Output Urine Total 100 ml Drainage Total 300 ml 30 ml # Voids 2 3 Dressing: dry Drains: kishor Respiratory: clear Abdomen: soft, flat, tenderness, absent bowel sounds Extremities: no tenderness Laboratory Tests Test 02/25/20 05:10 White Blood Count 16.6 K/UL (4.8-10.8) H Red Blood Count 4.79 M/UL (4.20-5.40) Hemoglobin 13.4 G/DL (12.0-16.0) Hematocrit 38.5 % (37.0-47.0) Mean Corpuscular Volume 80 FL (80-99) Mean Corpuscular Hemoglobin 28.0 PG (27.0-31.0) Mean Corpuscular Hemoglobin Concent 34.8 G/DL (32.0-36.0) Red Cell Distribution Width 11.8 % (11.6-14.8) Platelet Count 284 K/UL (150-450) Mean Platelet Volume 6.0 FL (6.5-10.1) L Neutrophils (%) (Auto) % (45.0-75.0) Lymphocytes (%) (Auto) % (20.0-45.0) Monocytes (%) (Auto) % (1.0-10.0) Eosinophils (%) (Auto) % (0.0-3.0) Basophils (%) (Auto) % (0.0-2.0) Differential Total Cells Counted 100 Neutrophils % (Manual) 88 % (45-75) H Lymphocytes % (Manual) 6 % (20-45) L Monocytes % (Manual) 6 % (1-10) Eosinophils % (Manual) 0 % (0-3) Basophils % (Manual) 0 % (0-2) Band Neutrophils 0 % (0-8) Platelet Estimate Adequate Platelet Morphology Normal Anisocytosis 1+ Sodium Level 141 MMOL/L (136-145) Potassium Level 3.9 MMOL/L (3.5-5.1) Chloride Level 109 MMOL/L (98-107) H Carbon Dioxide Level 20 MMOL/L (21-32) L Anion Gap 12 mmol/L (5-15) Blood Urea Nitrogen 10 mg/dL (7-18) Creatinine 1.1 MG/DL (0.55-1.30) Estimat Glomerular Filtration Rate > 60 mL/min (>60) Glucose Level 118 MG/DL (74-106) H Calcium Level 7.7 MG/DL (8.5-10.1) L Assessment Post-op Diagnosis appendicitis with abscess Plan Additional Comments continue antibiotics Marisol Boone MD February 25, 2020 11:07
--- NOTE | 2020-02-25 11:30 | NUR ---
NURSE NOTES:MESSAGE LEFT ON DR. RANDLE VOICE MAIL RE:ID CONSULT.PRIMARY RN AWARE.
[2020-02-25 12:00] VITALS: BP 113/65
[2020-02-25 16:00] VITALS: BP 127/73
--- NOTE | 2020-02-25 17:29 | Consultation ---
DATE OF CONSULTATION: 02/25/2020 INFECTIOUS DISEASES CONSULTATION CONSULTING PHYSICIAN: Aimee Treviño MD. REFERRING PHYSICIAN: Toni Kim MD. REASON FOR CONSULTATION: Appendiceal abscess. HISTORY OF PRESENTING ILLNESS: This is a 60-year-old lady with history of hypertension, who came in with abdominal pain on the right side along with nausea and vomiting. A CT abdomen showed appendicitis. She underwent laparoscopic appendicectomy with drainage of abscess with repair of the cecum. An Infectious Diseases consultation has been obtained for antibiotics and leukocytosis. PAST MEDICAL HISTORY: History of hypertension. SOCIAL HISTORY: She is a smoker. She drinks alcohol. No history of drug use. FAMILY HISTORY: Noncontributory. REVIEW OF SYSTEMS: RESPIRATORY: No fever, chills, cough, shortness of breath or chest pain. CARDIAC: No chest pain. No palpitation. No dizziness. No syncope. GASTROINTESTINAL: nausea and vomiting. She has abdominal pain. No diarrhea. MEDICATIONS: As an inpatient, she is on Protonix, gentamicin, Zosyn, Reglan, Dilaudid, Tylenol. ALLERGIES: No known drug allergies. PHYSICAL EXAMINATION: VITAL SIGNS: Temperature of 98.5, T-max of 99, pulse of 68, respiratory rate 20, blood pressure 109/62, O2 saturation of 98% on 3 liters of oxygen. HEENT: Pupils equally reactive to light and accommodation. Mouth appears clean without thrush. NECK: Supple. No adenopathy. No JVD. CARDIOVASCULAR: Regular rate and rhythm. No murmurs. LUNGS: Clear to auscultation bilaterally. No crackles. No wheezing. ABDOMEN: Soft. It is in dressing with a RENUKA drain noted. EXTREMITIES: No cyanosis, no clubbing, no edema. LABORATORY AND DIAGNOSTIC DATA: White count 19.1 on 02/24/2020, white count of 16.6 today, hemoglobin 13.4, hematocrit 38.5, MCV 80, platelet count 284, neutrophils of 88%. Sodium 141, potassium 3.9, chloride 109, bicarb 20, BUN 10, creatinine 1.1, glucose 118, calcium 7.7. Total bilirubin . AST 21, ALT 47, alkaline phosphatase 65. Total protein 8.3, albumin 3.9, lipase of 85. UA showing 0 to [address] abdomen and pelvis showing mild bibasilar atelectasis. Acute appendicitis. Mild circumferential wall thickening of the colon. ASSESSMENT: This is a 60-year-old lady with history of hypertension, who comes in with right-sided abdominal pain, nausea and vomiting and was found to have, 1. Appendiceal abscess. She underwent laparoscopic drainage of abscess with open exploration and repair of the cecum. 2. Leukocytosis is improving. 3. Hypertension. PLAN: 1. Continue Zosyn. 2. Discontinue gentamicin. 3. We will order abdominal drainage cultures. 4. We will follow up cultures and adjust antibiotics accordingly. I would like to thank, Dr. Kim for this consultation. Aimee Treviño M.D. DR: LAUREL JOB#: [id number] CC: Toni Kim M.D.; Fax#: [phone]
--- NOTE | 2020-02-25 19:20 | NUR ---
HAND-OFF: Report given to Neo MORTENSEN.
--- NOTE | 2020-02-25 19:30 | NUR ---
NURSE NOTES: Report received from FESTUS Moreno. Patient in stable condition. Denies any pain as of the moment.
[2020-02-25 20:00] VITALS: BP 126/74
[2020-02-26] VITALS: BP 131/82
[2020-02-26] MEDS: D5 1/2NS w/KCl 20mEq 1,000 ML IV SCH ×2 (03:30→15:23)
[2020-02-26 04:00] VITALS: BP 130/77
[2020-02-26] MEDS: Metoclopramide 10mg/2ml Inj IVP SCH ×3 (05:00→21:29)
[2020-02-26] MEDS: Piperacillin/Tazobactam 3.375 GM in NS 110 ML IVPB SCH ×3 (05:00→21:27)
[2020-02-26] MEDS: HYDROmorphone 1mg/ml Carpuject IVP PRN ×5 (05:10→22:07)
[2020-02-26 06:32] LABS: BASOPHILS % (AUTO) 0.9 % (0.0-2.0); EOSINOPHILS % (AUTO) 0.2 % (0.0-3.0); HEMATOCRIT 40.6 % (37.0-47.0); HEMOGLOBIN 14.3 G/DL (12.0-16.0); MEAN CORPUSCULAR VOLUME 80 FL (80-99); MONOCYTES % (AUTO) 7.6 % (1.0-10.0); NEUTROPHILS % (AUTO) 77.4 % (45.0-75.0); PLATELET COUNT 290 K/UL (150-450); RED BLOOD COUNT 5.11 M/UL (4.20-5.40); RED CELL DISTRIBUTION WIDTH 11.4 % (11.6-14.8); WHITE BLOOD COUNT 11.8 K/UL (4.8-10.8)
[2020-02-26 06:50] LABS: ANION GAP 11 mmol/L (5-15); BLOOD UREA NITROGEN 9 mg/dL (7-18); CALCIUM 8.4 MG/DL (8.5-10.1); CARBON DIOXIDE 21 MMOL/L (21-32); CHLORIDE 109 MMOL/L (98-107); POTASSIUM 3.6 MMOL/L (3.5-5.1); SODIUM 141 MMOL/L (136-145)
--- NOTE | 2020-02-26 07:31 | NUR ---
HAND-OFF: Report given to FESTUS Moreno. Patient in stable condition.
--- NOTE | 2020-02-26 07:40 | NUR ---
NURSE NOTES: Report received from Neo MORTENSEN. Patient is awake and alert, no signs of distress noted, states that her pain is improving. Right AC IV is patent and asymptomatic and running IVF as ordered. RENUKA drain is compressed and patent. Bed is low and locked, side rails up x2, call light within reach.
[2020-02-26 08:00] VITALS: BP 141/80
--- NOTE | 2020-02-26 08:13 | General Progress Note ---
Assessment/Plan Assessment/Plan: ASSESSMENT: Acute appendicitis. leukocytosis, due to the above proteinuria hypertension PLAN appy completed ID clearance antihypertensive surgery appreciated and await clearance impression, plan, and exam edited and reviewed in detail care discussed with RN Subjective Allergies: Coded Allergies: No Known Allergies (Unverified , 02/24/20) Subjective stable postop Objective Last 24 Hour Vital Signs Date Time Temp Pulse Resp B/P (MAP) Pulse Ox O2 Delivery O2 Flow Rate FiO2 02/26/20 08:00 98.1 76 20 141/80 (100) 97 02/26/20 05:40 98.9 02/26/20 04:00 98.9 68 18 130/77 (94) 96 02/26/20 00:00 99.2 65 17 131/82 (98) 96 02/25/20 21:00 Nasal Cannula 3.0 02/25/20 20:00 98.8 70 15 126/74 (91) 98 02/25/20 16:00 98.6 78 18 127/73 (91) 93 02/25/20 12:00 98.6 63 18 113/65 (81) 92 02/25/20 10:54 68 20 98 02/25/20 09:00 Nasal Cannula 3.0 Intake and Output 02/25/20 02/26/20 19:00 07:00 Output Total 25 ml 10 ml Balance -25 ml -10 ml Drainage Total 25 ml 10 ml # Voids 4 3 Laboratory Tests 02/25/20 11:00: Random Gentamicin Level 1.2 02/26/20 04:55: White Blood Count 11.8H, Red Blood Count 5.11, Hemoglobin 14.3, Hematocrit 40.6 , Mean Corpuscular Volume 80, Mean Corpuscular Hemoglobin 28.0, Mean Corpuscular Hemoglobin Concent 35.2, Red Cell Distribution Width 11.4L, Platelet Count 290, Mean Platelet Volume 6.3L, Neutrophils (%) (Auto) 77.4H, Lymphocytes (%) (Auto) 14.0L, Monocytes (%) (Auto) 7.6, Eosinophils (%) (Auto) 0.2, Basophils (%) (Auto) 0.9, Sodium Level 141, Potassium Level 3.6, Chloride Level 109H, Carbon Dioxide Level 21, Anion Gap 11, Blood Urea Nitrogen 9, Creatinine 1.0, Estimat Glomerular Filtration Rate > 60, Glucose Level 109H, Calcium Level 8.4L, C-Reactive Protein, Quantitative 17.0H Height (Feet): 5 Height (Inches): 6.00 Weight (Pounds): 175 Objective WDWN NAD clear breath sounds bilaterally without rhonchi or wheeze [id number] without MRG NABS nontender no HSM no CCE nonfocal Toni Kim MD February 26, 2020 08:13
[2020-02-26] MEDS: Pantoprazole Inj IVP SCH (08:35)
--- NOTE | 2020-02-26 09:49 | General Surgery Progress Note ---
General Surgery-Progress Note Subjective Procedure Performed Laparoscopic appendectomy drainage of abscess, open exploration and repair of cecum Objective Last 24 Hour Vital Signs Date Time Temp Pulse Resp B/P (MAP) Pulse Ox O2 Delivery O2 Flow Rate FiO2 02/26/20 08:00 98.1 76 20 141/80 (100) 97 02/26/20 05:40 98.9 02/26/20 04:00 98.9 68 18 130/77 (94) 96 02/26/20 00:00 99.2 65 17 131/82 (98) 96 02/25/20 21:00 Nasal Cannula 3.0 02/25/20 20:00 98.8 70 15 126/74 (91) 98 02/25/20 16:00 98.6 78 18 127/73 (91) 93 02/25/20 12:00 98.6 63 18 113/65 (81) 92 02/25/20 10:54 68 20 98 I&O Intake and Output 02/25/20 02/26/20 19:00 07:00 Output Total 25 ml 10 ml Balance -25 ml -10 ml Drainage Total 25 ml 10 ml # Voids 4 3 Wound: clean Drains: kishor Respiratory: clear Abdomen: soft, flat, tenderness, absent bowel sounds Extremities: no tenderness Laboratory Tests Test 02/25/20 11:00 02/26/20 04:55 Random Gentamicin Level 1.2 ug/mL White Blood Count 11.8 K/UL (4.8-10.8) H Red Blood Count 5.11 M/UL (4.20-5.40) Hemoglobin 14.3 G/DL (12.0-16.0) Hematocrit 40.6 % (37.0-47.0) Mean Corpuscular Volume 80 FL (80-99) Mean Corpuscular Hemoglobin 28.0 PG (27.0-31.0) Mean Corpuscular Hemoglobin Concent 35.2 G/DL (32.0-36.0) Red Cell Distribution Width 11.4 % (11.6-14.8) L Platelet Count 290 K/UL (150-450) Mean Platelet Volume 6.3 FL (6.5-10.1) L Neutrophils (%) (Auto) 77.4 % (45.0-75.0) H Lymphocytes (%) (Auto) 14.0 % (20.0-45.0) L Monocytes (%) (Auto) 7.6 % (1.0-10.0) Eosinophils (%) (Auto) 0.2 % (0.0-3.0) Basophils (%) (Auto) 0.9 % (0.0-2.0) Sodium Level 141 MMOL/L (136-145) Potassium Level 3.6 MMOL/L (3.5-5.1) Chloride Level 109 MMOL/L (98-107) H Carbon Dioxide Level 21 MMOL/L (21-32) Anion Gap 11 mmol/L (5-15) Blood Urea Nitrogen 9 mg/dL (7-18) Creatinine 1.0 MG/DL (0.55-1.30) Estimat Glomerular Filtration Rate > 60 mL/min (>60) Glucose Level 109 MG/DL (74-106) H Calcium Level 8.4 MG/DL (8.5-10.1) L C-Reactive Protein, Quantitative 17.0 mg/dL (0.00-0.90) H Assessment Post-op Diagnosis appendicitis with abscess Plan Additional Comments continue as before Marisol Boone MD February 26, 2020 09:49
--- NOTE | 2020-02-26 10:23 | NUR ---
CASE MANAGEMENT: REVIEW SI: ACUTE APPENDICITIS LAPAROSCOPIC APPENDECTOMY 02/23 T 98.1 HR 76 RR 20 BP 141/80 SAT 97% NC/3L WBC 11.8 GLUCOSE 109 IS: ZOSYN IV Q8HR REGLAN IV Q8HR CLEAR LIQUID DIET MED/SURG UNIT DCP: PATIENT IS FROM HOME
--- NOTE | 2020-02-26 11:19 | Infectious Diseases Prog Note ---
Assessment/Plan Assessment/Plan antibiotics : zosyn A 1. appendiceal abscess s/p laparoscopic drainage of abscess with open exploration and repair of the cecum. 2. Leukocytosis is improving. 3. Hypertension. PLAN: 1. Continue Zosyn. 2. will follow up cultures and adjust antibiotics accordingly. Subjective Constitutional: Denies: fever, chills Respiratory: Reports: dry cough - mild; Denies: shortness of breath Gastrointestinal/Abdominal: Reports: nausea; Denies: vomiting, diarrhea Musculoskeletal: Reports: pain - in abdomen Allergies: Coded Allergies: No Known Allergies (Unverified , 02/24/20) Objective Vital Signs Last 24 Hour Vital Signs Date Time Temp Pulse Resp B/P (MAP) Pulse Ox O2 Delivery O2 Flow Rate FiO2 02/26/20 09:00 Nasal Cannula 3.0 02/26/20 08:00 98.1 76 20 141/80 (100) 97 02/26/20 05:40 98.9 02/26/20 04:00 98.9 68 18 130/77 (94) 96 02/26/20 00:00 99.2 65 17 131/82 (98) 96 02/25/20 21:00 Nasal Cannula 3.0 02/25/20 20:00 98.8 70 15 126/74 (91) 98 02/25/20 16:00 98.6 78 18 127/73 (91) 93 02/25/20 12:00 98.6 63 18 113/65 (81) 92 Height (Feet): 5 Height (Inches): 6.00 Weight (Pounds): 175 Respiratory/Chest: lungs clear Cardiovascular: normal rate, regular rhythm, no gallop/murmur Abdomen: other - RENUKA drain Extremities: no edema Microbiology Date/Time Source Procedure Growth Status 02/25/20 17:40 Body Fluid Abscess Gram Stain Pending Resulted 02/25/20 17:40 Body Fluid Abscess Body Fluid Culture - Preliminary Resulted Laboratory Tests Test 02/26/20 04:55 White Blood Count 11.8 K/UL (4.8-10.8) H Red Blood Count 5.11 M/UL (4.20-5.40) Hemoglobin 14.3 G/DL (12.0-16.0) Hematocrit 40.6 % (37.0-47.0) Mean Corpuscular Volume 80 FL (80-99) Mean Corpuscular Hemoglobin 28.0 PG (27.0-31.0) Mean Corpuscular Hemoglobin Concent 35.2 G/DL (32.0-36.0) Red Cell Distribution Width 11.4 % (11.6-14.8) L Platelet Count 290 K/UL (150-450) Mean Platelet Volume 6.3 FL (6.5-10.1) L Neutrophils (%) (Auto) 77.4 % (45.0-75.0) H Lymphocytes (%) (Auto) 14.0 % (20.0-45.0) L Monocytes (%) (Auto) 7.6 % (1.0-10.0) Eosinophils (%) (Auto) 0.2 % (0.0-3.0) Basophils (%) (Auto) 0.9 % (0.0-2.0) Sodium Level 141 MMOL/L (136-145) Potassium Level 3.6 MMOL/L (3.5-5.1) Chloride Level 109 MMOL/L (98-107) H Carbon Dioxide Level 21 MMOL/L (21-32) Anion Gap 11 mmol/L (5-15) Blood Urea Nitrogen 9 mg/dL (7-18) Creatinine 1.0 MG/DL (0.55-1.30) Estimat Glomerular Filtration Rate > 60 mL/min (>60) Glucose Level 109 MG/DL (74-106) H Calcium Level 8.4 MG/DL (8.5-10.1) L C-Reactive Protein, Quantitative 17.0 mg/dL (0.00-0.90) H Current Medications Medications (Trade) Dose Ordered Sig/Toby Route PRN Reason Start Time Stop Time Status Last Admin Dose Admin Acetaminophen (Tylenol) 650 mg Q4H PRN RECTAL Mild Pain (Pain Scale 1-3) 02/24/20 13:30 03/25/20 13:29 Dextrose/ Electrolytes 1,000 ml @ 100 mls/hr Q10H IV 02/24/20 17:00 03/25/20 16:59 02/26/20 03:30 Hydromorphone HCl (Dilaudid) 1 mg Q4H PRN IVP For Pain 02/24/20 15:32 03/02/20 15:31 02/26/20 09:32 Metoclopramide HCl (Reglan) 10 mg EVERY 8 HOURS IVP 02/24/20 22:00 03/25/20 21:59 02/26/20 05:00 Pantoprazole (Protonix) 40 mg DAILY IVP 02/25/20 09:00 03/26/20 08:59 02/26/20 08:35 Piperacillin Sod/ Tazobactam Sod 3.375 gm/Sodium Chloride 110 ml @ 27.5 mls/hr EVERY 8 HOURS IVPB 02/24/20 22:00 03/02/20 21:59 02/26/20 05:00 Aimee Treviño MD February 26, 2020 11:19
[2020-02-26 12:00] VITALS: BP 141/93
[2020-02-26] MEDS ORDERED: NS 275ml ONE (13:24)
[2020-02-26] MEDS ORDERED: Tubing IV Secondary IV ONE (13:24)
[2020-02-26 16:00] VITALS: BP 151/93
--- NOTE | 2020-02-26 19:30 | NUR ---
HAND-OFF: Report given to Teodora MORTENSEN.
[2020-02-26 20:00] VITALS: BP 157/94
--- NOTE | 2020-02-26 20:00 | NUR ---
NURSE NOTES: Received patient awake in bed, able to make needs known, no s/s of acute distress. IV access patent, flushed with normal saline, patient tolerating well. Bed low and locked.
[2020-02-27] VITALS: BP 135/84
[2020-02-27] MEDS: HYDROmorphone 1mg/ml Carpuject IVP PRN ×5 (03:06→21:27)
[2020-02-27 04:00] VITALS: BP 147/91
[2020-02-27] MEDS: D5 1/2NS w/KCl 20mEq 1,000 ML IV SCH ×2 (04:43→17:05)
[2020-02-27] MEDS: Piperacillin/Tazobactam 3.375 GM in NS 110 ML IVPB SCH ×3 (05:33→21:26)
[2020-02-27] MEDS: Metoclopramide 10mg/2ml Inj IVP SCH ×4 (05:33→21:26)
--- NOTE | 2020-02-27 07:14 | NUR ---
HAND-OFF: Report given to Pattie De Luna.
--- NOTE | 2020-02-27 07:38 | NUR ---
NURSE NOTES: PT AXOX4, CALM, RESTING IN BED. IN NO APPARENT DISTRESS AT THIS TIME. PT STATES PAIN IS 3/10 AND COMFORTABLE. DENIES NAUSEA. PT EDUCATED ON PRN SCHEDULE DILAUDID. PT VERBALIZED UNDERSTANDING. RENUKA DRAIN OF RIGHT LOWER QUADRANT WITH YELLOW SEROUS DRAINAGE. 60CC DRAINED FROM RENUKA DRAIN. PT EDUCATED ON FALL/SAFETY PRECAUTIONS. PT VERBALIZED UNDERSTANDING. BED IN LOWEST POSITION WITH BEDSIDE RAILS X2 RAISED. WILL CONTINUE TO MONITOR. CALL LIGHT WITHIN REACH.
[2020-02-27 08:00] VITALS: BP 154/101
[2020-02-27] MEDS: Pantoprazole Inj IVP SCH (08:10)
--- NOTE | 2020-02-27 09:11 | General Progress Note ---
Assessment/Plan Assessment/Plan: ASSESSMENT: Acute appendicitis. leukocytosis, due to the above proteinuria hypertension PLAN ID clearance antihypertensive surgery appreciated and await clearance impression, plan, and exam edited and reviewed in detail care discussed with RN Subjective Allergies: Coded Allergies: No Known Allergies (Unverified , 02/24/20) Subjective stable postop Objective Last 24 Hour Vital Signs Date Time Temp Pulse Resp B/P (MAP) Pulse Ox O2 Delivery O2 Flow Rate FiO2 02/27/20 08:00 97.9 75 18 154/101 (118) 95 02/27/20 04:00 98.1 71 18 147/91 (109) 94 02/27/20 03:36 98.4 02/27/20 00:00 98.4 68 18 135/84 (101) 95 02/26/20 21:13 Nasal Cannula 3.0 02/26/20 20:00 98.1 85 18 157/94 (115) 95 02/26/20 16:00 97.9 75 18 151/93 (112) 96 02/26/20 12:00 98.2 73 21 141/93 (109) 95 Intake and Output 02/26/20 02/27/20 19:00 07:00 Intake Total 327.5 ml Output Total 120 ml Balance 207.5 ml Intake Oral 200 ml IV Total 127.5 ml Drainage Total 120 ml # Voids 2 Height (Feet): 5 Height (Inches): 6.00 Weight (Pounds): 173 Objective WDWN NAD clear breath sounds bilaterally without rhonchi or wheeze [id number] without MRG NABS nontender no HSM no CCE nonfocal Toni Kim MD February 27, 2020 09:11
--- NOTE | 2020-02-27 10:36 | Infectious Diseases Prog Note ---
Assessment/Plan Assessment/Plan antibiotics : zosyn A 1. appendiceal abscess s/p laparoscopic drainage of abscess with open exploration and repair of the cecum. 2. Leukocytosis is improving. 3. Hypertension. PLAN: 1. Continue Zosyn. 2. will follow up cultures and adjust antibiotics accordingly. Subjective Constitutional: Denies: fever, chills Respiratory: Denies: shortness of breath, dry cough Gastrointestinal/Abdominal: Denies: nausea, vomiting, diarrhea Musculoskeletal: Reports: pain - decreased abdominal Allergies: Coded Allergies: No Known Allergies (Unverified , 02/24/20) Objective Vital Signs Last 24 Hour Vital Signs Date Time Temp Pulse Resp B/P (MAP) Pulse Ox O2 Delivery O2 Flow Rate FiO2 02/27/20 09:00 Nasal Cannula 3.0 02/27/20 08:00 97.9 75 18 154/101 (118) 95 02/27/20 04:00 98.1 71 18 147/91 (109) 94 02/27/20 03:36 98.4 02/27/20 00:00 98.4 68 18 135/84 (101) 95 02/26/20 21:13 Nasal Cannula 3.0 02/26/20 20:00 98.1 85 18 157/94 (115) 95 02/26/20 16:00 97.9 75 18 151/93 (112) 96 02/26/20 12:00 98.2 73 21 141/93 (109) 95 Height (Feet): 5 Height (Inches): 6.00 Weight (Pounds): 173 Respiratory/Chest: lungs clear Cardiovascular: normal rate, regular rhythm, no gallop/murmur Abdomen: soft, non tender, other - RENUKA drain Extremities: no edema Microbiology Date/Time Source Procedure Growth Status 02/25/20 17:40 Body Fluid Abscess Gram Stain - Final Resulted 02/25/20 17:40 Body Fluid Abscess Body Fluid Culture - Preliminary NO GROWTH AFTER 24 HOURS Resulted Current Medications Medications (Trade) Dose Ordered Sig/Toby Route PRN Reason Start Time Stop Time Status Last Admin Dose Admin Acetaminophen (Tylenol) 650 mg Q4H PRN RECTAL Mild Pain (Pain Scale 1-3) 02/24/20 13:30 03/25/20 13:29 Dextrose/ Electrolytes 1,000 ml @ 100 mls/hr Q10H IV 02/24/20 17:00 03/25/20 16:59 02/27/20 04:43 Hydromorphone HCl (Dilaudid) 1 mg Q4H PRN IVP For Pain 02/24/20 15:32 03/02/20 15:31 02/27/20 08:15 Metoclopramide HCl (Reglan) 10 mg EVERY 8 HOURS IVP 02/24/20 22:00 03/25/20 21:59 02/27/20 05:36 Pantoprazole (Protonix) 40 mg DAILY IVP 02/25/20 09:00 03/26/20 08:59 02/27/20 08:10 Piperacillin Sod/ Tazobactam Sod 3.375 gm/Sodium Chloride 110 ml @ 27.5 mls/hr EVERY 8 HOURS IVPB 02/24/20 22:00 03/02/20 21:59 02/27/20 05:33 Aimee Treviño MD February 27, 2020 10:36
[2020-02-27 12:00] VITALS: BP 148/95
--- NOTE | 2020-02-27 12:48 | General Surgery Progress Note ---
General Surgery-Progress Note Subjective Procedure Performed Laparoscopic appendectomy drainage of abscess, open exploration and repair of cecum Symptoms: improved Objective Last 24 Hour Vital Signs Date Time Temp Pulse Resp B/P (MAP) Pulse Ox O2 Delivery O2 Flow Rate FiO2 02/27/20 12:00 97.5 67 20 148/95 (112) 93 02/27/20 09:00 Nasal Cannula 3.0 02/27/20 08:00 97.9 75 18 154/101 (118) 95 02/27/20 04:00 98.1 71 18 147/91 (109) 94 02/27/20 03:36 98.4 02/27/20 00:00 98.4 68 18 135/84 (101) 95 02/26/20 21:13 Nasal Cannula 3.0 02/26/20 20:00 98.1 85 18 157/94 (115) 95 02/26/20 16:00 97.9 75 18 151/93 (112) 96 I&O Intake and Output 02/26/20 02/27/20 19:00 07:00 Intake Total 327.5 ml Output Total 120 ml Balance 207.5 ml Intake Oral 200 ml IV Total 127.5 ml Drainage Total 120 ml # Voids 2 Dressing: dry Drains: kishor Respiratory: clear Abdomen: soft, flat, absent bowel sounds Extremities: no tenderness Assessment Post-op Diagnosis appendicitis with abscess Plan Additional Comments continue as before Marisol Boone MD February 27, 2020 12:48
--- NOTE | 2020-02-27 13:07 | NUR ---
NURSE NOTES: DR CAMPOS AT BEDSIDE WITH PT. NO NEW ORDERS. MADE AWARE OF RENUKA DRAIN OUTPUT. IN NO APPARENT DISTRESS AT THIS TIME. WILL CONTINUE TO MONITOR.
--- NOTE | 2020-02-27 13:09 | NUR ---
NURSE NOTES: PER DR CAMPOS, PT IS NOT READY FOR DISCHARGE TODAY.
[2020-02-27] MEDS: Docusate Sod/Senna tab ORAL SCH ×2 (13:39→17:05)
[2020-02-27 16:00] VITALS: BP 150/97
--- NOTE | 2020-02-27 19:23 | NUR ---
HAND-OFF: Report given to Michael WEBB RN.
[2020-02-27 20:00] VITALS: BP 155/94
--- NOTE | 2020-02-27 21:46 | NUR ---
NURSES NOTE: Pt in bed, A/OX4, no outward s/s of distress noted. Pt states 7/10 pain in abdominal area. Dilaudid 1mg IVP administered. Iv Left upper arm intact, diffusing properly. RENUKA drain in tact, bulb engaged. Dressing, anterior abdomen, clean and intact. All due meds will be given. Bed at lowest level, call light within reach. Pt will continue to be monitored.
[2020-02-28] VITALS: BP 153/93
[2020-02-28] MEDS: HYDROmorphone 1mg/ml Carpuject IVP PRN ×3 (01:30→12:08)
--- NOTE | 2020-02-28 03:39 | NUR ---
NURSES NOTE: Pt noted bleeding from vaginal area while using the restroom at apprx 0130. Pt stated she urinated and saw blood when she wiped herself and also noted scant blood in the toilet after getting up. Pt flushed, but was asked to show RN if the occurrence should happen again. Visual expection of the vaginal and gluteal folds completed, no source of the bleeding could be found externally. Will continue to monitor.
[2020-02-28 04:00] VITALS: BP 150/83
[2020-02-28 05:34] LABS: BASOPHILS % (AUTO) 1.4 % (0.0-2.0); HEMATOCRIT 41.3 % (37.0-47.0); HEMOGLOBIN 14.3 G/DL (12.0-16.0); LYMPHOCYTES % (AUTO) 26.8 % (20.0-45.0); MEAN CORPUSCULAR VOLUME 80 FL (80-99); NEUTROPHILS % (AUTO) 54.9 % (45.0-75.0); PLATELET COUNT 341 K/UL (150-450); RED BLOOD COUNT 5.18 M/UL (4.20-5.40); RED CELL DISTRIBUTION WIDTH 11.5 % (11.6-14.8); WHITE BLOOD COUNT 9.1 K/UL (4.8-10.8)
[2020-02-28 05:56] LABS: ANION GAP 10 mmol/L (5-15); BLOOD UREA NITROGEN 9 mg/dL (7-18); CALCIUM 8.8 MG/DL (8.5-10.1); CARBON DIOXIDE 21 MMOL/L (21-32); CHLORIDE 106 MMOL/L (98-107); POTASSIUM 3.8 MMOL/L (3.5-5.1); SODIUM 137 MMOL/L (136-145)
[2020-02-28] MEDS: Piperacillin/Tazobactam 3.375 GM in NS 110 ML IVPB SCH ×3 (06:30→22:00)
[2020-02-28] MEDS: Metoclopramide 10mg/2ml Inj IVP SCH ×3 (06:31→22:00)
--- NOTE | 2020-02-28 07:32 | NUR ---
NURSE NOTES: Report received from Jahaira MORTENSEN, rounds made. Patient AOx4, calm. Up to bathroom. IV Zosyn infusing to LAC, site asymptomatic. Abdominal surgical site, x4 CDI, RLQ dressing slight stained yellow serosanguineous drainage and RENUKA with same color output. Encouraged IS, demonstrates correctly, provided rolled blanket to splint abdomen while CDB, verbalized understanding. Flatulence present, no NV. Tolerating clear liquids. Call light in reach, bed in lowest position, will continue to monitor.
--- NOTE | 2020-02-28 07:57 | NUR ---
NURSES NOTE: Dr Benson called and message left in regards to Vaginal bleeding at 0650. Endorsed to FESTUS Bueno to f/u.
[2020-02-28 08:00] VITALS: BP 140/93
--- NOTE | 2020-02-28 08:00 | NUR ---
HAND OFF: Report given to FESTUS Bueno. Addendum: 02/28/20 at 0803 by Jahaira Donato RN mirna daley: 15cc
--- NOTE | 2020-02-28 08:22 | NUR ---
NURSE NOTES: Dr. Kim notified of patient having some unknown vaginal or urologic bleeding while in bed, had small smears of bright red blood to bedding and gown. Surgical sites CDI. Patient up to void in hat, urine yellow with slight blood tinged. Mariely-pad provided. No further orders. Denies pain to vaginal area. Will continue to monitor.
--- NOTE | 2020-02-28 08:51 | General Progress Note ---
Assessment/Plan Assessment/Plan: ASSESSMENT: Acute appendicitis. with abcess leukocytosis, proteinuria hypertension vaginal bleeding, small PLAN ID clearance surgical clearance antihypertensive surgery appreciated and await clearance outpatient mobile practice lead eval discussed impression, plan, and exam edited and reviewed in detail care discussed with RN Subjective Allergies: Coded Allergies: No Known Allergies (Unverified , 02/24/20) Subjective stable postop still with drain small vag bleeding Objective Last 24 Hour Vital Signs Date Time Temp Pulse Resp B/P (MAP) Pulse Ox O2 Delivery O2 Flow Rate FiO2 02/28/20 08:00 98.3 58 20 140/93 (109) 95 02/28/20 04:00 97.8 93 17 150/83 (105) 96 02/28/20 00:00 97.8 68 16 153/93 (113) 92 02/27/20 21:00 Nasal Cannula 3.0 02/27/20 20:00 98.3 64 15 155/94 (114) 94 02/27/20 16:00 97.9 75 18 150/97 (114) 96 02/27/20 12:00 97.5 67 20 148/95 (112) 93 02/27/20 09:00 Nasal Cannula 3.0 Intake and Output 02/27/20 02/28/20 19:00 07:00 Intake Total 1565.0 ml 470.0 ml Output Total 200 ml Balance 1365.0 ml 470.0 ml Intake Oral 400 ml 360 ml IV Total 1165.0 ml 110.0 ml Drainage Total 200 ml # Voids 3 3 Laboratory Tests 02/28/20 04:55: White Blood Count 9.1, Red Blood Count 5.18, Hemoglobin 14.3, Hematocrit 41.3, Mean Corpuscular Volume 80, Mean Corpuscular Hemoglobin 27.7, Mean Corpuscular Hemoglobin Concent 34.7, Red Cell Distribution Width 11.5L, Platelet Count 341, Mean Platelet Volume 6.2L, Neutrophils (%) (Auto) 54.9, Lymphocytes (%) (Auto) 26.8, Monocytes (%) (Auto) 12.0H, Eosinophils (%) (Auto) 5.0H, Basophils (%) ( Auto) 1.4, Sodium Level 137, Potassium Level 3.8, Chloride Level 106, Carbon Dioxide Level 21, Anion Gap 10, Blood Urea Nitrogen 9, Creatinine 1.0, Estimat Glomerular Filtration Rate > 60, Glucose Level 97, Calcium Level 8.8 Height (Feet): 5 Height (Inches): 6.00 Weight (Pounds): 173 Objective WDWN NAD clear breath sounds bilaterally without rhonchi or wheeze [id number] without MRG NABS nontender no HSM no CCE nonfocal Toni Kim MD February 28, 2020 08:51
[2020-02-28] MEDS: Pantoprazole Inj IVP SCH (09:48)
[2020-02-28] MEDS: Docusate Sod/Senna tab ORAL SCH ×2 (09:48→18:26)
--- NOTE | 2020-02-28 10:22 | NUR ---
RADIOLOGY DEPT., ABDOMEN X-RAY DONE.-P.DYE
--- NOTE | 2020-02-28 10:45 | Diagnostic Imaging Report ---
EXAM: XRAY Abdomen 1v HISTORY: Abdominal distention. Status post laparoscopy and drainage of abscess. COMPARISON: None. TECHNIQUE: Frontal view of the abdomen obtained. FINDINGS: Diffuse gaseous distention of small bowel noted likely a postoperative ileus. There are lucencies noted in the right colon. There are skin kailey in right lower quadrant and there is also a surgical drain in the right lower quadrant. No definite pathologic calcifications identified. There is no sign of free air. No acute abnormality noted of the visualized osseous structures. IMPRESSION: GASEOUS DISTENTION LIKELY A POSTOPERATIVE ILEUS.
[2020-02-28 12:00] VITALS: BP 145/88
--- NOTE | 2020-02-28 12:00 | NUR ---
NURSE NOTES: Spoke with Dr. Boone, updated on patient current status. No further orders. Abdominal XR (portable) done at 1000.
--- NOTE | 2020-02-28 13:43 | NUR ---
CASE MANAGEMENT: REVIEW 02/27/20 SI: S/P LAPAROSCOPIC APPENDECTOMY DRAINAGE OF ABSCESS AND OPEN EXPLORATION AND REPAIR OF CECUM ACUTE APPENDICITIS 97.9 75 18 154/101 95% NC/3L IS: IV ZOSYN TID IV REGLAN TID IV PROTONIX QD DWAYNE-COLACE PO TID IV DILAUDID Q4HR/PRN \: [facility]G UN[facility] DCP: PATIENT IS FROM HOME PLAN: ABD XR IN AM MONITOR FOR BM CONT CLEAR DIET CASE MANAGEMENT: REVIEW 02/28/20 SI: S/P LAPAROSCOPIC APPENDECTOMY DRAINAGE OF ABSCESS AND OPEN EXPLORATION AND REPAIR OF CECUM ACUTE APPENDICITIS 98.3 58 20 140/93 95% NC/3L IS: IV ZOSYN TID IV REGLAN TID IV PROTONIX QD DWAYNE-COLACE PO TID IV DILAUDID Q4HR/PRN X-RAY ABD-GASEOUS DISTENTION LIKELY A POSTOPERATIVE ILEUS. \: [facility] UN[facility] DCP: PATIENT IS FROM HOME PLAN: ID CLEARED PATIENT SURGERY TO CLEAR FOR DISCHARGE MONITOR FOR BM- NO BM CONT CLEAR DIET
--- NOTE | 2020-02-28 14:12 | Infectious Diseases Prog Note ---
Assessment/Plan Assessment/Plan A 1. appendiceal abscess s/p laparoscopic drainage of abscess with open exploration and repair of the cecum. 2. Leukocytosis is resolved. 3. Hypertension. PLAN: 1. Continue Zosyn. 2. will follow up cultures and adjust antibiotics accordingly. Subjective ROS Limited/Unobtainable: No Constitutional: Reports: no symptoms Respiratory: Reports: no symptoms Cardiovascular: Reports: no symptoms Gastrointestinal/Abdominal: Reports: other - mild abdominal pain Genitourinary: Reports: vaginal bleed/discharge Allergies: Coded Allergies: No Known Allergies (Unverified , 02/24/20) Objective Vital Signs Last 24 Hour Vital Signs Date Time Temp Pulse Resp B/P (MAP) Pulse Ox O2 Delivery O2 Flow Rate FiO2 02/28/20 12:00 98.5 64 20 145/88 (107) 96 02/28/20 09:00 Nasal Cannula 3.0 02/28/20 08:00 98.3 58 20 140/93 (109) 95 02/28/20 04:00 97.8 93 17 150/83 (105) 96 02/28/20 00:00 97.8 68 16 153/93 (113) 92 02/27/20 21:00 Nasal Cannula 3.0 02/27/20 20:00 98.3 64 15 155/94 (114) 94 02/27/20 16:00 97.9 75 18 150/97 (114) 96 Height (Feet): 5 Height (Inches): 6.00 Weight (Pounds): 173 General Appearance: no acute distress HEENT: mucous membranes moist Respiratory/Chest: lungs clear Cardiovascular: normal rate Abdomen: soft, non tender, other - R sided drain Extremities: no edema Neurologic/Psychiatric: alert, oriented x 3, responsive Microbiology Date/Time Source Procedure Growth Status 02/25/20 17:40 Body Fluid Abscess Gram Stain - Final Resulted 02/25/20 17:40 Body Fluid Abscess Body Fluid Culture - Preliminary NO GROWTH AFTER 48 HOURS Resulted Laboratory Tests Test 02/28/20 04:55 White Blood Count 9.1 K/UL (4.8-10.8) Red Blood Count 5.18 M/UL (4.20-5.40) Hemoglobin 14.3 G/DL (12.0-16.0) Hematocrit 41.3 % (37.0-47.0) Mean Corpuscular Volume 80 FL (80-99) Mean Corpuscular Hemoglobin 27.7 PG (27.0-31.0) Mean Corpuscular Hemoglobin Concent 34.7 G/DL (32.0-36.0) Red Cell Distribution Width 11.5 % (11.6-14.8) L Platelet Count 341 K/UL (150-450) Mean Platelet Volume 6.2 FL (6.5-10.1) L Neutrophils (%) (Auto) 54.9 % (45.0-75.0) Lymphocytes (%) (Auto) 26.8 % (20.0-45.0) Monocytes (%) (Auto) 12.0 % (1.0-10.0) H Eosinophils (%) (Auto) 5.0 % (0.0-3.0) H Basophils (%) (Auto) 1.4 % (0.0-2.0) Sodium Level 137 MMOL/L (136-145) Potassium Level 3.8 MMOL/L (3.5-5.1) Chloride Level 106 MMOL/L (98-107) Carbon Dioxide Level 21 MMOL/L (21-32) Anion Gap 10 mmol/L (5-15) Blood Urea Nitrogen 9 mg/dL (7-18) Creatinine 1.0 MG/DL (0.55-1.30) Estimat Glomerular Filtration Rate > 60 mL/min (>60) Glucose Level 97 MG/DL (74-106) Calcium Level 8.8 MG/DL (8.5-10.1) Current Medications Medications (Trade) Dose Ordered Sig/Toby Route PRN Reason Start Time Stop Time Status Last Admin Dose Admin Acetaminophen (Tylenol) 650 mg Q4H PRN RECTAL Mild Pain (Pain Scale 1-3) 02/24/20 13:30 03/25/20 13:29 Hydromorphone HCl (Dilaudid) 1 mg Q4H PRN IVP For Pain 02/24/20 15:32 03/02/20 15:31 02/28/20 12:08 Metoclopramide HCl (Reglan) 10 mg EVERY 8 HOURS IVP 02/24/20 22:00 03/25/20 21:59 02/28/20 06:31 Pantoprazole (Protonix) 40 mg DAILY IVP 02/25/20 09:00 03/26/20 08:59 02/28/20 09:48 Piperacillin Sod/ Tazobactam Sod 3.375 gm/Sodium Chloride 110 ml @ 27.5 mls/hr EVERY 8 HOURS IVPB 02/24/20 22:00 03/02/20 21:59 02/28/20 06:30 Senna/Docusate Sodium (Mariely-Colace) 1 tab TWICE A DAY ORAL 02/27/20 12:45 03/28/20 12:44 02/28/20 09:48 Bernard Fletcher MD February 28, 2020 14:12
[2020-02-28 16:00] VITALS: BP 143/85
--- NOTE | 2020-02-28 16:53 | General Surgery Progress Note ---
General Surgery-Progress Note Subjective Procedure Performed Laparoscopic appendectomy drainage of abscess, open exploration and repair of cecum Objective Last 24 Hour Vital Signs Date Time Temp Pulse Resp B/P (MAP) Pulse Ox O2 Delivery O2 Flow Rate FiO2 02/28/20 16:00 98.1 66 19 143/85 (104) 98 02/28/20 12:00 98.5 64 20 145/88 (107) 96 02/28/20 09:00 Nasal Cannula 3.0 02/28/20 08:00 98.3 58 20 140/93 (109) 95 02/28/20 04:00 97.8 93 17 150/83 (105) 96 02/28/20 00:00 97.8 68 16 153/93 (113) 92 02/27/20 21:00 Nasal Cannula 3.0 02/27/20 20:00 98.3 64 15 155/94 (114) 94 I&O Intake and Output 02/27/20 02/28/20 19:00 07:00 Intake Total 1565.0 ml 470.0 ml Output Total 200 ml Balance 1365.0 ml 470.0 ml Intake Oral 400 ml 360 ml IV Total 1165.0 ml 110.0 ml Drainage Total 200 ml # Voids 3 3 Dressing: dry Drains: kishor Respiratory: clear Abdomen: distended, non-tender, decreased bowel sounds Extremities: no tenderness Laboratory Tests Test 02/28/20 04:55 White Blood Count 9.1 K/UL (4.8-10.8) Red Blood Count 5.18 M/UL (4.20-5.40) Hemoglobin 14.3 G/DL (12.0-16.0) Hematocrit 41.3 % (37.0-47.0) Mean Corpuscular Volume 80 FL (80-99) Mean Corpuscular Hemoglobin 27.7 PG (27.0-31.0) Mean Corpuscular Hemoglobin Concent 34.7 G/DL (32.0-36.0) Red Cell Distribution Width 11.5 % (11.6-14.8) L Platelet Count 341 K/UL (150-450) Mean Platelet Volume 6.2 FL (6.5-10.1) L Neutrophils (%) (Auto) 54.9 % (45.0-75.0) Lymphocytes (%) (Auto) 26.8 % (20.0-45.0) Monocytes (%) (Auto) 12.0 % (1.0-10.0) H Eosinophils (%) (Auto) 5.0 % (0.0-3.0) H Basophils (%) (Auto) 1.4 % (0.0-2.0) Sodium Level 137 MMOL/L (136-145) Potassium Level 3.8 MMOL/L (3.5-5.1) Chloride Level 106 MMOL/L (98-107) Carbon Dioxide Level 21 MMOL/L (21-32) Anion Gap 10 mmol/L (5-15) Blood Urea Nitrogen 9 mg/dL (7-18) Creatinine 1.0 MG/DL (0.55-1.30) Estimat Glomerular Filtration Rate > 60 mL/min (>60) Glucose Level 97 MG/DL (74-106) Calcium Level 8.8 MG/DL (8.5-10.1) Assessment Post-op Diagnosis appendicitis with abscess Plan Additional Comments continue as before Marisol Boone MD February 28, 2020 16:53
--- NOTE | 2020-02-28 17:10 | NUR ---
NURSE NOTES: Patient remains on clear liquids diet. No NV. Abdomen distended, no gas, bowel sounds very little hypoactive. Up ambulating in room/BRP/halls with RN, gait steady, slow. Encouraged PO fluid intake. Continues to do IS as instructed. Abdominal surgical dressings remain the same. RENUKA remains in place. Patient continues to have moderate saturation of vaginal bleeding, as noted on jewels pad, Dr. Boone aware. No further orders.
--- NOTE | 2020-02-28 19:40 | NUR ---
HAND-OFF: Report given to Jahaira MORTENSEN, rounds made. Patient stable. Outputs: Urine: 1300 ml RENUKA: 10 ml
[2020-02-28 20:00] VITALS: BP 123/78
--- NOTE | 2020-02-28 20:12 | NUR ---
NURSES NOTE: Pt in bed, A/O x4, denies pain currently. No outward s/s of distress noted. Breathing pattern is even and unlabored on RA although pt uses o2 intermittently. Bleeding from the vaginal area continues with scant bleeding noted on jewels pad. Dr lai. NNO. Dressing is clean and intact, anterior abdominal area. J daley drain in place, bulb engaged, draining without incident. All due meds will be given. Call light within reach, bed at lowest level.
[2020-02-28] MEDS: Miralax 17gm pkt ORAL SCH (22:00)
[2020-02-29] VITALS: BP 138/85
[2020-02-29 04:00] VITALS: BP 144/96
[2020-02-29 05:57] LABS: BASOPHILS % (AUTO) 2.1 % (0.0-2.0); EOSINOPHILS % (AUTO) 1.9 % (0.0-3.0); HEMATOCRIT 42.9 % (37.0-47.0); HEMOGLOBIN 15.1 G/DL (12.0-16.0); LYMPHOCYTES % (AUTO) 13.6 % (20.0-45.0); MEAN CORPUSCULAR VOLUME 80 FL (80-99); MONOCYTES % (AUTO) 8.8 % (1.0-10.0); NEUTROPHILS % (AUTO) 73.7 % (45.0-75.0); PLATELET COUNT 369 K/UL (150-450); RED BLOOD COUNT 5.39 M/UL (4.20-5.40); RED CELL DISTRIBUTION WIDTH 11.1 % (11.6-14.8); WHITE BLOOD COUNT 8.9 K/UL (4.8-10.8)
[2020-02-29] MEDS: Piperacillin/Tazobactam 3.375 GM in NS 110 ML IVPB SCH (06:00)
[2020-02-29] MEDS: Metoclopramide 10mg/2ml Inj IVP SCH ×3 (06:00→21:00)
[2020-02-29 06:21] LABS: ANION GAP 13 mmol/L (5-15); BLOOD UREA NITROGEN 11 mg/dL (7-18); CALCIUM 8.5 MG/DL (8.5-10.1); CARBON DIOXIDE 20 MMOL/L (21-32); CHLORIDE 106 MMOL/L (98-107); CREATININE 0.9 MG/DL (0.55-1.30); POTASSIUM 3.8 MMOL/L (3.5-5.1); SODIUM 139 MMOL/L (136-145)
--- NOTE | 2020-02-29 07:33 | NUR ---
NURSE NOTES: Report received from Jahaira MORTENSEN, rounds made. Patient resting in right lateral position in bed. No distress on RA. Respirations even/unlabored. Abdominal dressings remain the same. RENUKA in place, yellow clear output. Encouraged IS and ambulation in halls. LAC heplock in place, refuses restart. Wants to go home, explained to patient post op care after abdominal bowel surgery concerns, ( needs to pass gas, tolerate diet, have BM ), verbalized understanding. Call light in reach, bed in lowest position, will continue to monitor.
[2020-02-29 08:00] VITALS: BP 161/93
--- NOTE | 2020-02-29 08:39 | NUR ---
HAND OFF: Report given to FESTUS Bueno. RENUKA drain: 7cc
[2020-02-29] MEDS: Docusate Sod/Senna tab ORAL SCH ×2 (08:45→17:45)
[2020-02-29] MEDS: traMADol 50mg tab ORAL PRN ×2 (08:45→17:45)
--- NOTE | 2020-02-29 09:01 | NUR ---
NURSE NOTES: Patient refusing IV restart, IV Zosyn and Reglan (scheduled). BP 161/93. Abdominal pain 6/10, medicated with Ultram (Dilaudid discontinued). Continues to have vaginal bleeding (moderate saturation). No BM, no bowel sounds, no NV, poor appetite on clear liquid diet, flatulence a little, abdomen soft but distended (continues with Miralax and Pericolace as ordered). Patient wants to go home. Dr. Kim notified of above, labs reviewed. Orders received from transvaginal US and Provera 10 mg QD, see orders, will update patient.
[2020-02-29] MEDS: medroxyPROGESTERone 10mg tab ORAL SCH (10:22)
--- NOTE | 2020-02-29 10:55 | Infectious Diseases Prog Note ---
Assessment/Plan Assessment/Plan antibiotics : zosyn A 1. appendiceal abscess s/p laparoscopic drainage of abscess with open exploration and repair of the cecum. 2. Leukocytosis is improving. 3. Hypertension. PLAN: 1. dc Zosyn 2. start and continue levoquin 4 more days 2. will follow up cultures and adjust antibiotics accordingly. Subjective Constitutional: Denies: fever, chills Respiratory: Denies: shortness of breath, dry cough Gastrointestinal/Abdominal: Denies: nausea, vomiting, diarrhea Musculoskeletal: Reports: pain - decreased abdominal Allergies: Coded Allergies: No Known Allergies (Unverified , 02/24/20) Objective Vital Signs Last 24 Hour Vital Signs Date Time Temp Pulse Resp B/P (MAP) Pulse Ox O2 Delivery O2 Flow Rate FiO2 02/29/20 08:00 98.1 65 17 161/93 (115) 96 02/29/20 04:00 97.9 77 19 144/96 (112) 96 02/29/20 00:00 98.7 78 19 138/85 (102) 97 02/28/20 21:00 Nasal Cannula 3.0 02/28/20 20:00 98.9 68 19 123/78 (93) 96 02/28/20 16:00 98.1 66 19 143/85 (104) 98 02/28/20 12:00 98.5 64 20 145/88 (107) 96 Height (Feet): 5 Height (Inches): 6.00 Weight (Pounds): 173 Respiratory/Chest: lungs clear Cardiovascular: normal rate, regular rhythm, no gallop/murmur Abdomen: soft, non tender Extremities: no edema Laboratory Tests Test 02/29/20 05:00 White Blood Count 8.9 K/UL (4.8-10.8) Red Blood Count 5.39 M/UL (4.20-5.40) Hemoglobin 15.1 G/DL (12.0-16.0) Hematocrit 42.9 % (37.0-47.0) Mean Corpuscular Volume 80 FL (80-99) Mean Corpuscular Hemoglobin 28.0 PG (27.0-31.0) Mean Corpuscular Hemoglobin Concent 35.2 G/DL (32.0-36.0) Red Cell Distribution Width 11.1 % (11.6-14.8) L Platelet Count 369 K/UL (150-450) Mean Platelet Volume 5.9 FL (6.5-10.1) L Neutrophils (%) (Auto) 73.7 % (45.0-75.0) Lymphocytes (%) (Auto) 13.6 % (20.0-45.0) L Monocytes (%) (Auto) 8.8 % (1.0-10.0) Eosinophils (%) (Auto) 1.9 % (0.0-3.0) Basophils (%) (Auto) 2.1 % (0.0-2.0) H Sodium Level 139 MMOL/L (136-145) Potassium Level 3.8 MMOL/L (3.5-5.1) Chloride Level 106 MMOL/L (98-107) Carbon Dioxide Level 20 MMOL/L (21-32) L Anion Gap 13 mmol/L (5-15) Blood Urea Nitrogen 11 mg/dL (7-18) Creatinine 0.9 MG/DL (0.55-1.30) Estimat Glomerular Filtration Rate > 60 mL/min (>60) Glucose Level 94 MG/DL (74-106) Calcium Level 8.5 MG/DL (8.5-10.1) Current Medications Medications (Trade) Dose Ordered Sig/Toby Route PRN Reason Start Time Stop Time Status Last Admin Dose Admin Acetaminophen (Tylenol) 650 mg Q4H PRN ORAL Mild Pain (Pain Scale 1-3) 02/28/20 17:00 03/29/20 16:59 Medroxyprogesterone Acetate (Provera) 10 mg DAILY ORAL 02/29/20 09:00 05/29/20 08:59 02/29/20 10:22 Metoclopramide HCl (Reglan) 10 mg EVERY 8 HOURS IVP 02/24/20 22:00 03/25/20 21:59 02/28/20 22:00 Pantoprazole (Protonix) 40 mg DAILY ORAL 02/29/20 09:00 03/30/20 08:59 02/29/20 08:44 Piperacillin Sod/ Tazobactam Sod 3.375 gm/Sodium Chloride 110 ml @ 27.5 mls/hr EVERY 8 HOURS IVPB 02/24/20 22:00 03/02/20 21:59 02/28/20 22:00 Polyethylene Glycol (Miralax) 17 gm BEDTIME ORAL 02/28/20 21:00 03/29/20 20:59 02/28/20 22:00 Senna/Docusate Sodium (Mariely-Colace) 1 tab TWICE A DAY ORAL 02/27/20 12:45 03/28/20 12:44 02/29/20 08:45 Tramadol HCl (Ultram) 50 mg Q4H PRN ORAL For Pain 02/28/20 17:00 03/06/20 16:59 02/29/20 08:45 Aimee Treviño MD February 29, 2020 10:55
[2020-02-29] MEDS ORDERED: Levofloxacin 500mg tab ORAL SCH (11:00)
--- NOTE | 2020-02-29 11:38 | General Progress Note ---
Assessment/Plan Assessment/Plan: ASSESSMENT: Acute appendicitis. with abcess leukocytosis, proteinuria hypertension vaginal bleeding, PLAN ID clearance progresterone surgical clearance antihypertensive surgery appreciated and await clearance outpatient nurse obgyn eval discussed transvaginal us impression, plan, and exam edited and reviewed in detail care discussed with RN Subjective Allergies: Coded Allergies: No Known Allergies (Unverified , 02/24/20) Subjective stable postop still with drain some vag bleeding patient confirms she is taking progesterone Objective Last 24 Hour Vital Signs Date Time Temp Pulse Resp B/P (MAP) Pulse Ox O2 Delivery O2 Flow Rate FiO2 02/29/20 08:00 98.1 65 17 161/93 (115) 96 02/29/20 04:00 97.9 77 19 144/96 (112) 96 02/29/20 00:00 98.7 78 19 138/85 (102) 97 02/28/20 21:00 Nasal Cannula 3.0 02/28/20 20:00 98.9 68 19 123/78 (93) 96 02/28/20 16:00 98.1 66 19 143/85 (104) 98 02/28/20 12:00 98.5 64 20 145/88 (107) 96 Intake and Output 02/28/20 02/29/20 19:00 07:00 Intake Total 700 ml 480 ml Output Total 1310 ml 632 ml Balance -610 ml -152 ml Intake Oral 700 ml 480 ml Output Urine Total 1300 ml 625 ml Drainage Total 10 ml 7 ml # Voids 6 7 Laboratory Tests 02/29/20 05:00: White Blood Count 8.9, Red Blood Count 5.39, Hemoglobin 15.1, Hematocrit 42.9, Mean Corpuscular Volume 80, Mean Corpuscular Hemoglobin 28.0, Mean Corpuscular Hemoglobin Concent 35.2, Red Cell Distribution Width 11.1L, Platelet Count 369, Mean Platelet Volume 5.9L, Neutrophils (%) (Auto) 73.7, Lymphocytes (%) (Auto) 13.6L, Monocytes (%) (Auto) 8.8, Eosinophils (%) (Auto) 1.9, Basophils (%) (Auto ) 2.1H, Sodium Level 139, Potassium Level 3.8, Chloride Level 106, Carbon Dioxide Level 20L, Anion Gap 13, Blood Urea Nitrogen 11, Creatinine 0.9, Estimat Glomerular Filtration Rate > 60, Glucose Level 94, Calcium Level 8.5 Height (Feet): 5 Height (Inches): 6.00 Weight (Pounds): 173 Objective WDWN NAD clear breath sounds bilaterally without rhonchi or wheeze [id number] without MRG NABS nontender no HSM no CCE nonfocal Toni Kim MD February 29, 2020 11:38
--- NOTE | 2020-02-29 11:48 | Diagnostic Imaging Report ---
EXAM: US Pelvic Limited CLINICAL HISTORY: Vaginal bleeding. Recent appendectomy. COMPARISON: None TECHNIQUE: Ultrasound examination of the pelvis includes grayscale images, and color and spectral doppler analysis. FINDINGS: Transabdominal technique utilized. Patient status post recent surgery and cannot tolerate endovaginal exam. The uterus measures 9.4 x 7.1 x 5.6 cm. Myometrium is heterogeneous. Endometrial stripe is 5 mm and heterogeneous. Small nabothian cysts noted. Right ovary is a 1.5 x 1.8 cm with normal vascular flow. Left ovary is only marginally visualized and estimated at 2.3 x 2.1 cm. There is no free fluid. IMPRESSION: LIMITED TRANSABDOMINAL STUDY ONLY. PATIENT STATUS POST RECENT SURGERY AND UNABLE TO TOLERATE ENDOVAGINAL EXAM. HETEROGENEOUS UTERUS LIKELY DIFFUSE FIBROID CHANGE. ENDOMETRIUM IS NOT PARTICULARLY THICKENED BUT IS DIFFUSELY HETEROGENEOUS PERHAPS CONTAINING SOME HEMORRHAGIC PRODUCTS GIVEN CLINICAL HISTORY OF VAGINAL BLEEDING. LEFT OVARY ONLY MARGINALLY VISUALIZED..
[2020-02-29 12:00] VITALS: BP 122/97
--- NOTE | 2020-02-29 12:20 | NUR ---
CASE MANAGEMENT: REVIEW 02/29/20 SI: S/P LAPAROSCOPIC APPENDECTOMY DRAINAGE OF ABSCESS AND OPEN EXPLORATION AND REPAIR OF CECUM ACUTE APPENDICITIS 98.1 65 17 161/93 96% NC/3L CO2 20 IS: IV ZOSYN TID IV REGLAN TID IV PROTONIX QD DWAYNE-COLACE PO TID IV DILAUDID Q4HR/PRN US PELVIC LIMITED- HETEROGENEOUS UTERUS LIKELY DIFFUSE FIBROID CHANGE. ENDOMETRIUM IS NOT PARTICULARLY THICKENED BUT IS DIFFUSELY HETEROGENEOUS PERHAPS CONTAINING SOME HEMORRHAGIC PRODUCTS GIVEN CLINICAL HISTORY OF VAGINAL BLEEDING. LEFT OVARY ONLY MARGINALLY VISUALIZED.. US TRANSVAGINAL- RESULTS PENDING \: [facility]E MED/SURG UNIT DCP: PATIENT IS FROM HOME PLAN: START ON PO LEVAQUIN X4 DAYS NO BM DC HOME AFTER RENUKA DRAIN REMOVED
--- NOTE | 2020-02-29 12:27 | NUR ---
RD ASSESSMENT & RECOMMENDATIONS SEE CARE ACTIVITY FOR COMPLETE ASSESSMENT DAILY ESTIMATED NEEDS: Needs based on Surgery 64kg abw 25-30 kcals/kg 9277-5030 total kcals 1-2 g protein/kg 64-128 g total protein 25-30 mL/kg 6746-5563 total fluid mLs NUTRITION DIAGNOSIS: Increased pro needs r/t surgery as evidenced by s/p lap appendectomy, on CLD. CURRENT DIET: CLD PO DIET RECOMMENDATIONS: CLD w/ Ensure Clear ADDITIONAL RECOMMENDATIONS: 1) Check A1C 2) Add Ensure Clear w/ CLD 3) Monitor tolerance to diet, no bm at this time Advance diet per MD, re Low Na/ soft
[2020-02-29] MEDS ORDERED: Tubing IV Secondary IV ONE (12:42)
--- NOTE | 2020-02-29 14:00 | NUR ---
NURSE NOTES: Patient updated on new order for Dulcolax suppository and labs draw in AM. Patient ambulated in halls this morning, sat up in chair, tolerated well. Encouraged patient to ambulate again and continue to push PO fluid intake and pass gas as able to. Denies NV. Will order prune juice for later this evening if patient would like to try if suppository is not successful. Patient understands that if suppository is not effective, will administer another dose at 0800 tomorrow per MD order.
--- NOTE | 2020-02-29 14:01 | General Surgery Progress Note ---
General Surgery-Progress Note Subjective Procedure Performed Laparoscopic appendectomy drainage of abscess, open exploration and repair of cecum Objective Last 24 Hour Vital Signs Date Time Temp Pulse Resp B/P (MAP) Pulse Ox O2 Delivery O2 Flow Rate FiO2 02/29/20 08:00 98.1 65 17 161/93 (115) 96 02/29/20 04:00 97.9 77 19 144/96 (112) 96 02/29/20 00:00 98.7 78 19 138/85 (102) 97 02/28/20 21:00 Nasal Cannula 3.0 02/28/20 20:00 98.9 68 19 123/78 (93) 96 02/28/20 16:00 98.1 66 19 143/85 (104) 98 I&O Intake and Output 02/28/20 02/29/20 19:00 07:00 Intake Total 700 ml 480 ml Output Total 1310 ml 632 ml Balance -610 ml -152 ml Intake Oral 700 ml 480 ml Output Urine Total 1300 ml 625 ml Drainage Total 10 ml 7 ml # Voids 6 7 Dressing: dry Drains: none Respiratory: clear Abdomen: soft, distended, non-tender, decreased bowel sounds Extremities: no tenderness Laboratory Tests Test 02/29/20 05:00 White Blood Count 8.9 K/UL (4.8-10.8) Red Blood Count 5.39 M/UL (4.20-5.40) Hemoglobin 15.1 G/DL (12.0-16.0) Hematocrit 42.9 % (37.0-47.0) Mean Corpuscular Volume 80 FL (80-99) Mean Corpuscular Hemoglobin 28.0 PG (27.0-31.0) Mean Corpuscular Hemoglobin Concent 35.2 G/DL (32.0-36.0) Red Cell Distribution Width 11.1 % (11.6-14.8) L Platelet Count 369 K/UL (150-450) Mean Platelet Volume 5.9 FL (6.5-10.1) L Neutrophils (%) (Auto) 73.7 % (45.0-75.0) Lymphocytes (%) (Auto) 13.6 % (20.0-45.0) L Monocytes (%) (Auto) 8.8 % (1.0-10.0) Eosinophils (%) (Auto) 1.9 % (0.0-3.0) Basophils (%) (Auto) 2.1 % (0.0-2.0) H Sodium Level 139 MMOL/L (136-145) Potassium Level 3.8 MMOL/L (3.5-5.1) Chloride Level 106 MMOL/L (98-107) Carbon Dioxide Level 20 MMOL/L (21-32) L Anion Gap 13 mmol/L (5-15) Blood Urea Nitrogen 11 mg/dL (7-18) Creatinine 0.9 MG/DL (0.55-1.30) Estimat Glomerular Filtration Rate > 60 mL/min (>60) Glucose Level 94 MG/DL (74-106) Calcium Level 8.5 MG/DL (8.5-10.1) Assessment Post-op Diagnosis appendicitis with abscess Plan Additional Comments continue as before Marisol Boone MD February 29, 2020 14:01
[2020-02-29 16:00] VITALS: BP 165/91
--- NOTE | 2020-02-29 19:59 | NUR ---
NURSE NOTES: Report received from FESTUS Bueno. Patient in stable condition.
[2020-02-29 20:00] VITALS: BP 121/97
--- NOTE | 2020-02-29 20:05 | NUR ---
HAND-OFF: Report given to Neo MORTENSEN, rounds made, patient stable.
[2020-02-29] MEDS: Miralax 17gm pkt ORAL SCH ×2 (21:00→21:13)
--- NOTE | 2020-02-29 21:00 | NUR ---
NURSE NOTES: Patient had a small bowel movement at around 1999. Scant red blood noted in the urine, however, Doctor is informed and patient is now starting to take Provera. Patient is stable otherwise. Patient refused Miralax and reglan IVP. Informed patient about the risk and benefit. Patient was encouraged to drink prune juice, increase fluid intake and to ambulate as tolerated.
--- NOTE | 2020-02-29 21:10 | NUR ---
NURSE NOTES: Patient changed her mind and says that she wants miralax to help her soften her stool. Will administer as ordered.
[2020-03-01] VITALS: BP 128/75
[2020-03-01 03:48] VITALS: BP 156/91
[2020-03-01] MEDS: Metoclopramide 10mg/2ml Inj IVP SCH ×2 (06:00→14:00)
[2020-03-01 06:18] LABS: BASOPHILS % (AUTO) 2.2 % (0.0-2.0); EOSINOPHILS % (AUTO) 2.8 % (0.0-3.0); HEMATOCRIT 41.9 % (37.0-47.0); HEMOGLOBIN 14.5 G/DL (12.0-16.0); LYMPHOCYTES % (AUTO) 24.8 % (20.0-45.0); MEAN CORPUSCULAR VOLUME 80 FL (80-99); MONOCYTES % (AUTO) 11.1 % (1.0-10.0); NEUTROPHILS % (AUTO) 59.1 % (45.0-75.0); PLATELET COUNT 350 K/UL (150-450); RED BLOOD COUNT 5.27 M/UL (4.20-5.40); WHITE BLOOD COUNT 7.8 K/UL (4.8-10.8)
--- NOTE | 2020-03-01 07:19 | NUR ---
NURSE NOTES: Report received from Neo MORTENSEN, rounds made. Patient AOx4 calm. Respirations even/unlabored on RA. Denies SOB. Abdominal pain /10. Abdomen soft, non-distended, reports a little flatulence, no NV, bowel sounds hypoactive, appetite fair. LAC heplock intact. Encouraged IS and ambulation. Abdominal surgical dressings CDI. Right abdomen kailey intact, surrounding skin normal. Call light in reach, bed in lowest position, will continue to monitor.
--- NOTE | 2020-03-01 07:26 | NUR ---
HAND-OFF: Report given to FESTUS Bueno. Patient is in stable condition.
[2020-03-01 08:00] VITALS: BP 144/90
[2020-03-01] MEDS: medroxyPROGESTERone 10mg tab ORAL SCH (08:35)
[2020-03-01] MEDS: Docusate Sod/Senna tab ORAL SCH (08:36)
--- NOTE | 2020-03-01 08:55 | General Progress Note ---
Assessment/Plan Assessment/Plan: ASSESSMENT: Acute appendicitis. with abcess leukocytosis, proteinuria hypertension vaginal bleeding, PLAN ID clearance- levaquin progresterone surgical clearance antihypertensive outpatient enterprise architect eval discussed with patient transvaginal us reviewed impression, plan, and exam edited and reviewed in detail care discussed with RN Subjective Allergies: Coded Allergies: No Known Allergies (Unverified , 02/24/20) Subjective stable postop US noted and discussed on progesterone Objective Last 24 Hour Vital Signs Date Time Temp Pulse Resp B/P (MAP) Pulse Ox O2 Delivery O2 Flow Rate FiO2 03/01/20 08:00 98.1 66 20 144/90 (108) 97 03/01/20 03:48 98.1 68 20 156/91 (112) 97 03/01/20 00:00 98.3 87 20 128/75 (92) 97 02/29/20 21:00 Room Air 02/29/20 20:00 98.0 69 21 121/97 (105) 97 02/29/20 17:15 Room Air 02/29/20 16:00 97.6 58 18 165/91 (115) 96 02/29/20 12:00 98.2 94 18 122/97 (105) 96 02/29/20 09:00 Room Air Intake and Output 02/29/20 03/01/20 19:00 07:00 Intake Total 600 ml 500 ml Output Total 900 ml Balance -300 ml 500 ml Intake Oral 600 ml 500 ml Output Urine Total 900 ml # Voids 3 3 # Bowel Movements 2 2 Laboratory Tests 03/01/20 05:15: White Blood Count 7.8, Red Blood Count 5.27, Hemoglobin 14.5, Hematocrit 41.9, Mean Corpuscular Volume 80, Mean Corpuscular Hemoglobin 27.6, Mean Corpuscular Hemoglobin Concent 34.6, Red Cell Distribution Width 11.0L, Platelet Count 350, Mean Platelet Volume 6.0L, Neutrophils (%) (Auto) 59.1, Lymphocytes (%) (Auto) 24.8, Monocytes (%) (Auto) 11.1H, Eosinophils (%) (Auto) 2.8, Basophils (%) ( Auto) 2.2H Height (Feet): 5 Height (Inches): 6.00 Weight (Pounds): 173 Objective WDWN NAD clear breath sounds bilaterally without rhonchi or wheeze [id number] without MRG NABS nontender no HSM no CCE nonfocal Toni Kim MD March 01, 2020 08:55
--- NOTE | 2020-03-01 11:54 | General Surgery Progress Note ---
General Surgery-Progress Note Subjective Procedure Performed Laparoscopic appendectomy drainage of abscess, open exploration and repair of cecum Symptoms: improved, BM Objective Last 24 Hour Vital Signs Date Time Temp Pulse Resp B/P (MAP) Pulse Ox O2 Delivery O2 Flow Rate FiO2 03/01/20 08:00 98.1 66 20 144/90 (108) 97 03/01/20 03:48 98.1 68 20 156/91 (112) 97 03/01/20 00:00 98.3 87 20 128/75 (92) 97 02/29/20 21:00 Room Air 02/29/20 20:00 98.0 69 21 121/97 (105) 97 02/29/20 17:15 Room Air 02/29/20 16:00 97.6 58 18 165/91 (115) 96 02/29/20 12:00 98.2 94 18 122/97 (105) 96 I&O Intake and Output 02/29/20 03/01/20 18:59 06:59 Intake Total 600 ml 500 ml Output Total 900 ml Balance -300 ml 500 ml Intake Oral 600 ml 500 ml Output Urine Total 900 ml # Voids 3 3 # Bowel Movements 2 2 Wound: clean, intact Drains: none Respiratory: clear Abdomen: soft, flat, non-tender, present bowel sounds Extremities: no tenderness Laboratory Tests Test 03/01/20 05:15 White Blood Count 7.8 K/UL (4.8-10.8) Red Blood Count 5.27 M/UL (4.20-5.40) Hemoglobin 14.5 G/DL (12.0-16.0) Hematocrit 41.9 % (37.0-47.0) Mean Corpuscular Volume 80 FL (80-99) Mean Corpuscular Hemoglobin 27.6 PG (27.0-31.0) Mean Corpuscular Hemoglobin Concent 34.6 G/DL (32.0-36.0) Red Cell Distribution Width 11.0 % (11.6-14.8) L Platelet Count 350 K/UL (150-450) Mean Platelet Volume 6.0 FL (6.5-10.1) L Neutrophils (%) (Auto) 59.1 % (45.0-75.0) Lymphocytes (%) (Auto) 24.8 % (20.0-45.0) Monocytes (%) (Auto) 11.1 % (1.0-10.0) H Eosinophils (%) (Auto) 2.8 % (0.0-3.0) Basophils (%) (Auto) 2.2 % (0.0-2.0) H Assessment Post-op Diagnosis appendicitis with abscess Plan Additional Comments discharge to home Marisol Boone MD March 01, 2020 11:54
[2020-03-01] MEDS ORDERED: Levofloxacin 500mg tab ORAL SCH (12:00)
--- NOTE | 2020-03-01 12:00 | NUR ---
NURSE NOTES: Discussed with Dr. Boone patient current status (BM, diet, pain, activity), orders for discharge (okay for patient to drive home), change to regular diet. Patient updated, plans for discharge after meals to check for tolerance.
[2020-03-01 12:02] VITALS: BP 133/89
--- NOTE | 2020-03-01 13:10 | NUR ---
ORDER TO DC HOME @1200
[2020-03-01] MEDS: traMADol 50mg tab ORAL PRN (15:58)
[2020-03-01 16:00] VITALS: BP 120/80
[2020-03-01] MEDS ORDERED: LEVAQUIN500 MG ORAL (16:47)
[2020-03-01] MEDS ORDERED: TRAMADOL HCL50 MG ORAL (16:49)
--- NOTE | 2020-03-01 17:45 | NUR ---
NURSE NOTES: Discharge instructions, prescriptions x2, reviewed with patient, verbalized understanding. IV heplock discontinued, no active bleeding. All belongings, discharge instructions and prescriptions x2 given to patient. Ambulated down to lobby with RN, in stable condition. Discharged home 1745.
--- NOTE | 2020-03-04 12:13 | Discharge Summary ---
Discharge Summary Discharge Summary _ DATE OF ADMISSION: 02/24/2020 DATE OF DISCHARGE: 03/01/2020 DISCHARGED BY: Dr. Kim REASON FOR ADMISSION: 60 years old female with no significant past medical history, presented to emergency department complaining of abdominal pain. Pain started the day prior to presentation to ER. Pain described as located in lower abdomen with radiation to the back . Pain reported as sharp ,10 out of 10 ,with associated nausea and vomiting. No fever or chills. No chest pain. No diarrhea. No sick contacts or recent traveling. Upon evaluation patient was tachycardic, tachypneic , but no fever and pulse oximetry was stable on room air. Laboratory work-up revealed leukocytosis WBC 19.1, stable electrolytes. Glucose 166. Urinalysis revealed no evidence of urinary tract infection, +[address] scan of the abdomen and pelvis revealed acute appendicitis, no evidence of abscess or perforation. In emergency department patient received empiric antibiotic, analgesic and admitted for further management. CONSULTANTS: ID specialist Dr. Treviño surgery [facility] COURSE: Patient admitted. to medical surgical floor. Patient was kept n.p.o. Patient started on IV fluids and empiric antibiotics. Surgeon seen and evaluated patient. Patient subsequently undergone laparoscopic appendectomy with drainage of abscess and open exploration of the right lower quadrant with the repair of the cecum. Postoperatively course of recovery was uneventful. Antibiotic provided as per ID recommendation. Intraoperative culture was negative. Patient was on IV Zosyn. Leukocytosis resolved. No fevers. Antibiotic changed to oral Levaquin to complete the course at home as per ID specialist recommendation. Pain management was addressed , and pain was controlled with oral analgesic. Patient noted to have elevated blood pressure. Patient started on antihypertensive. Diet slowly started as tolerated , and patient able to tolerate diet. Antiemetic were on board as needed. GI prophylaxis provided. Bowel regimen instituted. Patient noted to have vaginal bleeding. Patient started on Provera. Transvaginal ultrasound demonstrated heterogeneous uterus, likely diffused fibroid changes. Endometrium was not found to be particularly thickened, but diffusely heterogeneous , possibly containing some hemorrhagic products given clinical history . Hemoglobin and hematocrit were closely monitored ; prior to discharge hemoglobin 14.5 , hematocrit 41.9. Patient need to follow-up with outpatient DISEASE INTERVENTION SPECIALIST evaluation , which was discussed in depth with patient. Patient clinically stabilized and was ready for discharge FINAL DIAGNOSES: Acute appendicitis with abscess status post laparoscopic appendectomy with drainage of abscess and open exploration of the right lower quadrant with repair of cecum Leukocytosis- resolved Proteinuria Hypertension Vaginal bleeding DISCHARGE MEDICATIONS: See Medication Reconciliation list. DISCHARGE INSTRUCTIONS: Patient was discharged home. Follow-up with primary care provider and outpatient DISEASE INTERVENTION SPECIALIST as advised. I have been assigned to dictate discharge summary for this account. I was not involved in the patient's management. Deepali Justice NP March 04, 2020 12:13
== END 2020-03-01 17:45 | disposition home or self-care (01) | DRG 331 ==
LOC: EMR 05:23 → EDBEDREQ 10:39 → EDBEDREQSVC 10:41 → SDSOVERFLO 10:46 → 3E 15:20
PROC: 0DBH0ZZ Excision of Cecum, Open Approach (ICD-10-PCS; principal; 2020-02-24 10:30)
PROC: 0WJG4ZZ Inspection of Peritoneal Cavity, Percutaneous Endoscopic Approach (ICD-10-PCS; principal; 2020-02-24 10:30)
PROC: 0DTJ0ZZ Resection of Appendix, Open Approach (ICD-10-PCS; principal; 2020-02-24 10:30)
DX: K35.33 Acute appendicitis with perforation, localized peritonitis, and gangrene, with abscess (principal); I10 Essential (primary) hypertension; R80.9 Proteinuria, unspecified; N93.9 Abnormal uterine and vaginal bleeding, unspecified
CPT/HCPCS: 36415; 74018; 74177; 76830; 76857; 80048; 80053; 80170; 81003; 83690; 85007; 85025; 85610; 85730; 86140; 86850; 86900; 86901; 87070; 87205; 94003; 94150; 96361; 96365; 96368; 96375; 96376; 99285; C9399; J2250; J2405; J2710; J2765; J7030